=== PATIENT | male | born 1965 | race Caucasian/White ===

== ENCOUNTER 2016-11-08 10:57 | Day surgery (SDC) | payer MEDICAID ==
--- NOTE | 2016-10-26 12:47 | P.GSHP ---
History of Present Illness H&P Date: 10/26/16 Chief Complaint: Right inguinal hernia Patient was seen in the office for evaluation of a right angle hernia. The patient is a history of a previous open left inguinal hernia repair. The patient had increased pain and an enlarging bulge over the last several months. Pain does radiate to the back somewhat. Denies nausea or vomiting. No change in bowel habits. Medications and Allergies Home Medications Medication Instructions Recorded Confirmed Type Ibuprofen [Advil] 200 - 400 mg PO Q4-6H PRN 01/16/15 01/16/15 History Zipp Fizz 1 dose PO DAILY 01/16/15 01/16/15 History Allergies Allergy/AdvReac Type Severity Reaction Status Date / Time No Known Allergies Allergy Verified 01/16/15 09:06 Surgical - Exam Physical exam: General: Well-developed, well-nourished HEENT: Normocephalic, sclerae nonicteric Abdomen: Nontender, nondistended, reducible right inguinal hernia noted, both testes normal, no palpable abdominal hernia, previous scar noted Extremities: No edema Neuro: Alert and oriented Assessment and Plan (1) Right inguinal hernia Narrative/Plan: Will proceed with operative repair. Patient I discussed the options of approach. We decided to proceed with a da Fan assisted laparoscopic radical herniorrhaphy. The risks of bleeding, infection, bowel and bladder injury, recurrence, and conversion to an open procedure were discussed. He understands and wishes to proceed. Status: Acute
[2016-11-04 11:01] VITALS: BMI 24.4
[~2016-11-08 10:57] MED LIST: DEXAMETHASONE SOD PHOSPHATE 10 MG/ML 1 ML VIAL IV ONE; HEPARIN SODIUM,PORCINE 5,000 UNIT/ML 1 ML VIAL SQ ONE; LACTATED RINGERS 1,000 ML IV SCH; MIDAZOLAM 2 MG/2 ML VIAL IV PRN; ONDANSETRON 4 MG/2 ML VIAL IVP ONE; SCOPOLAMINE 1.5MG/72HR PATCH TRANSDERM ONE; ceFAZolin 2 GM in SODIUM CHLORIDE 0.9% 100 ML IVPB ONE
[2016-11-08 13:53] VITALS: TEMP 97.6
[2016-11-08] MEDS ORDERED: LIDOCAINE 1% 20 ML VIAL (10MG/ML) FOR IV START INTRADERMA ONE (14:00)
[2016-11-08 14:14] LABS: Glucose,Whole Blood 93 mg/dL (75-99)
[2016-11-08] MEDS ORDERED: FAMOTIDINE 20 MG/2 ML VIAL IV ONE (14:17)
[2016-11-08] MEDS ORDERED: LIDOCAINE 1% INJ 10MG/ML (20 ML MDV) ONE (14:56)
[2016-11-08] MEDS ORDERED: PROPOFOL 10 MG/ML 20 ML VIAL IV ONE (14:56)
[2016-11-08] MEDS ORDERED: NEOSTIGMINE 1 MG/ML 10 ML VIAL ONE (14:56)
[2016-11-08] MEDS ORDERED: SUCCINYLCHOLINE CHLORIDE 100 MG/5 ML SYR IV ONE (14:56)
[2016-11-08] MEDS ORDERED: HYDROmorphone (PF) 1 MG/ML ONE (14:56)
[2016-11-08] MEDS ORDERED: GLYCOPYRROLATE 0.2 MG/ML 2 ML VIAL ONE (14:56)
[2016-11-08] MEDS ORDERED: MIDAZOLAM 2 MG/2 ML VIAL ONE (14:56)
[2016-11-08] MEDS ORDERED: fentaNYL (PF) 50 MCG/ML 2 ML AMP ONE (14:56)
[2016-11-08] MEDS ORDERED: ROCURONIUM BROMIDE 10 MG/ML 10 ML VIAL IV ONE (14:56)
[2016-11-08] MEDS ORDERED: BUPIVACAIN-EPI 0.25%-1:200,000 30 ML VIAL SQ ONE ×2 (15:23)
[2016-11-08] MEDS: HYDROmorphone 1 MG/ML 1 ML SYRINGE IVP PRN ×3 (17:48→18:01)
[2016-11-08] MEDS ORDERED: KETOROLAC 30 MG/ML 1 ML VIAL IVP ONE (17:48)
[2016-11-08] MEDS ORDERED: HYDROcodone/APAP 5-325MG 1 EACH TAB PO PRN (18:00)
[2016-11-08] MEDS ORDERED: NALOXONE 0.4 MG/ML 1 ML VIAL IV PRN (18:00)
--- NOTE | 2016-11-08 18:03 | P.PCN ---
Date of Procedure: 11/08/16 Preoperative Diagnosis: Postoperative Diagnosis: Procedure(s) Performed: PREOPERATIVE DIAGNOSIS: Right inguinal hernia POSTOPERATIVE DIAGNOSIS: Same PROCEDURE: Laparoscopic repair right inguinal hernia with the da Fan robot assistance SURGEON: Caterina EBL: Minimal ANESTHESIA: General COMPLICATIONS: None OPERATIVE PROCEDURE: Patient was placed in the operating table in the supine position. The patient was then placed in lithotomy. The abdomen was prepped and draped in usual sterile fashion. A small curvilinear supraumbilical incision was made. The fascia was retracted anteriorly with Germán forceps. The Veress needle was inserted. The saline drop test was normal. Insufflation took place to 15 mmHg. A 5 mm trocar was then inserted. 2 additional 8 mm trochars were placed in the right upper quadrant and left upper quadrant under visualization. The initial 5 was switched to a 12 mm trocar at that time under direct visualization. The robotic arms were then brought in and docked into place. The fenestrated bipolar was used in the left arm and the laparoscopic liat was utilized in the right arm. A 30 12 mm scope was used in the up position. The peritoneal cavity was inspected. The patient had a indirect inguinal hernia on the right side. The left side appeared normal without defect. Following that careful dissection of the preperitoneal space took place. This took place using both electrocautery and sharp dissection and primarily blunt dissection. Visualization of the pubic tubercle and Baldemar's ligament took place medially. Full dissection took place laterally as well. The patient's hernia was quite large with some degree of chronic inflammatory change. The hernia sac was fully dissected. Dissection took place down onto the iliacs. Once we had adequate space the 15 x 10 progrip mesh was advanced into the preperitoneal space and flattened out appropriately to cover all potential hernia sites. No sutures were used. The peritoneal defect was then closed using a locking 2-0 VLok suture. The patient had 2-3 small defects in the peritoneum. Thankfully we had a large amount of hernia sac to help with coverage and the hernia sac was used to cover the small defects using 2 separate short running 3-0 Vicryl sutures. The pneumoperitoneum was then evacuated. The fascia at the 12 mm site was closed using an 0 Vicryl stitch. The skin of all 3 sites was closed using a 4-0 Monocryl stitch. Dermabond was then applied. DISPOSITION: Stable to recovery room Implants: Indications for Procedure: Operative Findings: Description of Procedure:
[2016-11-08 18:23] VITALS: RESP 18
[2016-11-08] MEDS ORDERED: ONDANSETRON 4 MG/2 ML VIAL IVP ONE (19:12)
[2016-11-08 19:14] VITALS: BP 145/87; PULSE 89
[2016-11-09] MEDS ORDERED: KETOROLAC 30 MG/ML 1 ML VIAL IVP SCH
== END 2016-11-08 19:42 | disposition home or self-care (01) ==
LOC: OR 10:57
PROVIDERS: ATTEND Surgery
DX: K40.90 Unilateral inguinal hernia, without obstruction or gangrene, not specified as recurrent (principal); K21.9 Gastro-esophageal reflux disease without esophagitis
CPT/HCPCS: 49650; C1781; J2250; J1644; J1100; J2710; J0690; J2405; J2001; J3010; J1885; J1170; J0330; J2704

== ENCOUNTER 2017-05-02 11:35 | Day surgery (SDC) | payer MEDICAID ==
[2017-04-27 14:24] VITALS: BMI 25.0
[~2017-05-02 11:35] MED LIST changes: -HEPARIN SODIUM,PORCINE 5,000 UNIT/ML 1 ML VIAL SQ ONE; +HYDROmorphone 0.5 MG/0.5 ML SYRINGE IVP PRN; -LACTATED RINGERS 1,000 ML IV SCH; +LIDOCAINE 1% 20 ML VIAL (10MG/ML) FOR IV START INTRADERMA PRN; -ceFAZolin 2 GM in SODIUM CHLORIDE 0.9% 100 ML IVPB ONE; +ceFAZolin IN SWFI 2 GM/20 ML SYRINGE IVP ONE
[2017-05-02] MEDS: LACTATED RINGERS 1,000 ML IV SCH ×2 (12:42→15:07)
[2017-05-02 12:45] VITALS: TEMP 98.3
[2017-05-02] MEDS ORDERED: fentaNYL (PF) 50 MCG/ML 2 ML AMP IV ONE (12:54)
[2017-05-02] MEDS ORDERED: LIDOCAINE 1% INJ 10MG/ML (20 ML MDV) ONE (13:15)
[2017-05-02] MEDS ORDERED: MEPERIDINE 50 MG/ML SYRINGE ONE (13:15)
[2017-05-02] MEDS ORDERED: MIDAZOLAM 2 MG/2 ML VIAL ONE (13:15)
[2017-05-02] MEDS ORDERED: fentaNYL (PF) 50 MCG/ML 2 ML AMP ONE (13:15)
[2017-05-02] MEDS ORDERED: PROPOFOL 10 MG/ML 20 ML VIAL IV ONE (13:15)
[2017-05-02] MEDS ORDERED: KETAMINE 10 MG/ML 20 ML VIAL ONE (13:15)
[2017-05-02] MEDS ORDERED: MORPHINE SULFATE 10 MG/ML SYRINGE ONE (13:15)
[2017-05-02] MEDS ORDERED: ceFAZolin 1,000 MG in SODIUM CHLORIDE 0.9% 1,000 ML IRRIGATION ONE (13:43)
[2017-05-02 14:12] VITALS: RESP 16
[2017-05-02] MEDS ORDERED: SCOPOLAMINE 1.5MG/72HR PATCH TRANSDERM ONE (14:23)
--- NOTE | 2017-05-02 14:32 | P.ONQ ---
Anesthesiology Proc Note - PNB - Peripheral Nerve Block Performed Left Axillary Single Time Out Performed: Yes Procedure Start Time: 13:00 Indication: Acute Post-Operative Pain, Analgesia Sedation Type: Sedate with meaningful contact maintained Preparation: Sterile Prep Position: Supine Catheter: None Needle Types: Other (see comment) (Salvador) Needle Size: 50mm (2") Needle Gauge: 21 Technique: Ultrasound Injectate: Other (see comment) (12.5 mL 2% lidocaine +12.5 mL 0.5% bupivacaine) Adjunct: Epinephrine (see comment for dilution ratio) (1:200,000) Narrative: The block was difficult to do since there were quite a number of ancillary veins in the area of the axillary artery and it was difficult to reach the area of the ulnar nerve and the radial nerve while trying to avoid these vessels. Blood Aspirated: No Pain Paresthesia on Injection Noted: No Resistance on Injection: Normal Events: Uneventful and Well Tolerated
[2017-05-02] MEDS ORDERED: HYDROcodone/APAP 10-325MG 1 EACH TAB PO ONE (14:45)
[2017-05-02 15:40] VITALS: BP 119/85; PULSE 67
--- NOTE | 2017-06-30 08:41 | OP ---
OPERATIVE REPORT SURGERY DATE: 05/02/2017. PREOPERATIVE DIAGNOSIS: Advanced basal joint arthritis left thumb. FINAL DIAGNOSIS: Advanced basal joint arthritis left thumb. PROCEDURE PERFORMED: Excision of trapezium with ligament reconstruction tendon interposition arthroplasty using the flexor carpi radialis tendon. DESCRIPTION OF PROCEDURE: The patient was taken to the Operative Suite after an axillary block was performed by the Department of Anesthesia in the holding area with good results. The involved arm was prepped and draped in the usual manner, elevated, exsanguinated and blood pressure tourniquet inflated to 250 mm of mercury. A volar incision was made over the palm of the hand using a Cedeno approach. The dissection was taken through the subcutaneous tissue bluntly to identify and to preserve sensory branches. The flexor carpi radialis tendon was initially identified and kept in view throughout the remainder of the procedure. The thenar muscles were then gently dissected off of the volar capsule and reflected ulnarly and distally. Longitudinal arthrotomy was then made into the trapezial metacarpal and scaphotrapezial joints. The trapezium was dissected sharply with a little traction on the thumb and care again, given to monitoring the position of the flexor carpi radialis. The trapezium was osteotomized and removed in piecemeal fashion using rongeur. Again, the flexor carpi radialis tendon was kept intact so as not to be harmed during this portion of the procedure. A drill hole was then made into the base of the first metacarpal, beginning with an awl and enlarged using drill bits and a large curette. A similar hole was drilled on the dorsal aspect of the base of the first metacarpal perpendicular to the plane of the nail bed. Attention was then turned to harvesting the flexor carpi radialis. Approximately 8 to 10 cm proximal to the wrist, small transverse incision was made and blunt dissection was taken through the subcutaneous tissue. The flexor carpi radialis tendon was identified and released to this level. It was retracted into the wrist wound with a gentle tug. A suspension sling arthroplasty was then performed along with ligament reconstruction of the deep volar ligament using the flexor carpi radialis tendon. The edge of the tendon was secured with suture. The suture was then passed into the base of the first metacarpal and brought out through the dorsal drill hole and brought back down upon itself and abductor pollicis longus tendons. It was secured in place with 3-0 PDS suture. It was then brought back around itself, back through the abductor pollicis longus tendons, and back down upon itself again and further secured with 3-0 PDS suture. Again, in this manner reconstruction of the deep volar ligament was accomplished as well as a suspension sling arthroplasty and natural tendon spacer for the joint. Next, a longitudinal incision was made along the ring finger ray distal to the wrist crease. Dissection was taken through the skin and subcutaneous tissue, initially sharp through the skin and then blunt through the subcutaneous tissue to ensure protection of any potential terminal transverse branches of the palmar cutaneous nerve. The palmar fascia was then incised under direct vision longitudinally exposing the transverse carpal ligament. The transverse carpal ligament also was incised under direct visualization. The median nerve was then reflected free of tenosynovium to ensure no adhesions. At this point, a slight hour glass constriction was noted of the median nerve beneath the transverse carpal ligament. Both wounds were again irrigated and were closed with running and interrupted 5-0 nylon suture. A soft bulky dressing was then applied including the volar plaster splint, immobilizing the wrist in neutral position and a thumb spica splint to the IP joint, immobilizing the thumb. The patient was then taken to the Recovery Room in satisfactory condition. MMODL / IJN: [id number] /
== END 2017-05-02 15:48 | disposition home or self-care (01) ==
LOC: OR 11:35
PROVIDERS: ATTEND Orthopaedic Surgery Hand Surgery
DX: M18.9 Osteoarthritis of first carpometacarpal joint, unspecified (principal); M19.032 Primary osteoarthritis, left wrist; K21.9 Gastro-esophageal reflux disease without esophagitis; K90.0 Celiac disease; Z91.018 Allergy to other foods; Z79.1 Long term (current) use of non-steroidal anti-inflammatories (NSAID)
CPT/HCPCS: 25447; 26480; J2250; J1100; J2175; J2270; J0690 ×2; J2405; J2001; J3010; J2704

== ENCOUNTER → 2019-03-24 | Outpatient (CLI) | payer MEDICAID ==
[2019-03-24 08:47] LABS: Basophils # (A) 0.1 k/uL (0-0.2); Basophils % (A) 2 %; Eosinophils # (A) 0.2 k/uL (0-0.7); Eosinophils % (A) 4 %; HGB 16.1 gm/dL (13.0-17.5); Lymphocytes # (A) 1.2 k/uL (1.0-4.8); Lymphocytes % (A) 25 %; MCH 31.5 pg (25.0-35.0); MCHC 34.2 g/dL (31.0-37.0); MCV 92.3 fL (80.0-100.0); Mean Platelet Volume 5.5; Monocytes # (A) 0.4 k/uL (0-1.0); Monocytes % (A) 8 %; Neutrophils # (A) 2.7 k/uL (1.3-7.7); Neutrophils % (A) 59 %; Platelet Count 287 k/uL (150-450); RDW 12.5 % (11.5-15.5); WBC 4.6 k/uL (3.8-10.6)
--- NOTE | 2019-03-24 16:35 | XR ---
EXAMINATION TYPE: XR Hip Complete LT DATE OF EXAM: 03/24/2019 COMPARISON: None HISTORY: Eun osteoarthritis hip pain TECHNIQUE: 2 view left hip FINDINGS: There is loss of joint space. Acetabular and femoral head sclerosis is present. Some femora l head spurring is noted. Findings are compatible with early advanced osteoarthritic degenerative walter nge. No acute fractures are evident. IMPRESSION: 1. Moderate to advanced osteoarthritic degenerative change left hip.
[2019-03-24 18:13] LABS: African American GFR (CKD) 98.5 (60.0-200.0); Albumin 4.7 g/dL (3.80-4.90); Albumin/Globulin Ratio 2.14 (1.60-3.17); Chol/HDL Ratio 3.23; Globulin 2.2 g/dL (1.6-3.3); Potassium 5.7 mmol/L (3.5-5.5); Total Bilirubin 1.1 mg/dL (0.3-1.2); Total Protein 6.9 g/dL (6.2-8.2)
[2019-03-24 20:27] LABS: Hemoglobin A1C 5.6 % (4.0-6.0)
== END | disposition home or self-care (01) ==
LOC: LABWHC1 08:15
PROVIDERS: ATTEND Internal Medicine Geriatric Medicine
DX: M16.12 Unilateral primary osteoarthritis, left hip (principal); K90.0 Celiac disease; E78.5 Hyperlipidemia, unspecified; R73.9 Hyperglycemia, unspecified; N40.0 Benign prostatic hyperplasia without lower urinary tract symptoms; Z00.00 Encounter for general adult medical examination without abnormal findings
CPT/HCPCS: 36415; 73502; 80053; 80061; 83036; 84153; 84443; 85025

== ENCOUNTER 2019-06-20 07:16 | Day surgery (SDC) | payer MEDICAID ==
[2019-06-18 14:14] VITALS: BMI 25.7
[~2019-06-20 07:16] MED LIST changes: -DEXAMETHASONE SOD PHOSPHATE 10 MG/ML 1 ML VIAL IV ONE; -HYDROmorphone 0.5 MG/0.5 ML SYRINGE IVP PRN; +LACTATED RINGERS 1,000 ML IV SCH; -MIDAZOLAM 2 MG/2 ML VIAL IV PRN; -ONDANSETRON 4 MG/2 ML VIAL IVP ONE; -SCOPOLAMINE 1.5MG/72HR PATCH TRANSDERM ONE; -ceFAZolin IN SWFI 2 GM/20 ML SYRINGE IVP ONE
[2019-06-20 07:34] VITALS: TEMP 98.6
[2019-06-20] MEDS ORDERED: ONDANSETRON 4 MG/2 ML VIAL IVP ONE (07:39)
[2019-06-20] MEDS ORDERED: LIDOCAINE 1% INJ 10MG/ML (20 ML MDV) ONE (07:49)
[2019-06-20] MEDS ORDERED: fentaNYL (PF) 50 MCG/ML 2 ML AMP ONE (07:49)
[2019-06-20] MEDS ORDERED: MIDAZOLAM 2 MG/2 ML VIAL ONE (07:49)
[2019-06-20] MEDS ORDERED: PROPOFOL 10 MG/ML 20 ML VIAL IV ONE (07:49)
--- NOTE | 2019-06-20 08:10 | P.GSHP ---
History of Present Illness H&P Date: 06/20/19 Chief Complaint: GERD, screening Patient here today for upper and lower endoscopy. Patient has complaints of bad reflux and upper abdominal discomfort for the last 5 months. History of celiac disease in the past although that seems to have resolved. He has a history of colon polyps when he was a child but none since. No bowel related complaints. Past Medical History Past Medical History: Asthma, GERD/Reflux, Osteoarthritis (OA) Additional Past Medical History / Comment(s): exercise induced asthma. hx celiac disease History of Any Multi-Drug Resistant Organisms: None Reported Past Surgical History: Hernia Repair, Orthopedic Surgery Additional Past Surgical History / Comment(s): COLON POLYP,ORIF RIGHT HAND,LEFT INGUINAL HERNIA, VASECTOMY,COLONOSCOPY,RIGHT KNEE ARTHROSCOPIC , RIGHT ROTATOR CUFF X3, LEFT KNEE ARTHROSCOPIC,Rt inguinal hernia repair Past Anesthesia/Blood Transfusion Reactions: Motion Sickness, Postoperative Nausea & Vomiting (PONV) Additional Past Anesthesia/Blood Transfusion Reaction / Comment(s): no hx blood transfusion Smoking Status: Former smoker - Past Family History Mother Family Medical History: Cancer Medications and Allergies Home Medications Medication Instructions Recorded Confirmed Type Albuterol Inhaler [Ventolin Hfa 1 - 2 puff INHALATION RT-Q6H PRN 06/18/19 06/20/19 History Inhaler] Ibuprofen [Advil] 200 mg PO DAILY PRN 06/18/19 06/20/19 History Omeprazole Magnesium [PriLOSEC OTC] 20 mg PO DAILY 06/18/19 06/20/19 History Allergies Allergy/AdvReac Type Severity Reaction Status Date / Time No Known Allergies Allergy Verified 06/20/19 07:26 Surgical - Exam Vital Signs Temp Pulse Resp BP Pulse Ox 98.6 F 83 15 162/104 95 06/20/19 07:30 06/20/19 07:30 06/20/19 07:30 06/20/19 07:30 06/20/19 07:30 Physical exam: General: Well-developed, well-nourished HEENT: Normocephalic, sclerae nonicteric Abdomen: Nontender, nondistended Extremities: No edema Neuro: Alert and oriented Assessment and Plan (1) GERD (gastroesophageal reflux disease) Narrative/Plan: Will proceed with upper and lower endoscopy at this time. Current Visit: Yes Status: Acute Code(s): K21.9 - GASTRO-ESOPHAGEAL REFLUX DISEASE WITHOUT ESOPHAGITIS SNOMED Code(s): 017084775
--- NOTE | 2019-06-20 08:19 | P.PCN ---
Date of Procedure: 06/20/19 Procedure(s) Performed: PREOPERATIVE DIAGNOSIS: GERD, screening POSTOPERATIVE DIAGNOSIS: Gastritis, tiny sliding hiatal hernia, diverticulosis PROCEDURE: 1. EGD with biopsy 2. Colonoscopy ANESTHESIA: MAC SURGEON: Zack Diggs M.D. SPECIMENS: Duodenum, antrum ENDOSCOPIC PROCEDURE: The patient was on the endoscopy table in the left decubitus position. The Olympus gastroscope was inserted into the oropharynx and passed under direct visualization to the region of the third portion of the duodenum. From that point the scope was slowly withdrawn inspecting all surfaces carefully. There were no neoplastic inflammatory or polypoid lesions throughout the duodenum. A biopsy of the duodenum took place. The pylorus was widely patent. The stomach was carefully inspected. There was gastritis present. A biopsy of the antrum took place to rule out H. pylori. Retroflexion revealed a very small sliding hiatal hernia. The esophagus was then carefully examined. There were no neoplastic inflammatory or polypoid lesions throughout the visualized esophagus. The patient was kept on the endoscopy table in the left decubitus position. The Olympus colonoscope was inserted into the anus and passed under direct visualization to the base of the cecum. The appendiceal orifice was visualized. From that point the scope was slowly withdrawn inspecting all surfaces carefully. There were no neoplastic inflammatory or polypoid lesions throughout the cecum, ascending, transverse, descending, sigmoid and rectum. There was mild left-sided diverticulosis noted. Digital rectal examination was normal. The patient was taken to the recovery room in stable condition per anesthesia guidelines. RECOMMENDATIONS: Increase fiber. Follow-up colonoscopy in 10 years. Continue antiacids but gradually decrease frequency of use.
[2019-06-20 08:25] VITALS: RESP 16
[2019-06-20 08:46] VITALS: BP 142/95; PULSE 65
== END 2019-06-20 08:58 | disposition home or self-care (01) ==
LOC: ORWHC2ENDO 07:16
PROVIDERS: ATTEND Surgery
DX: K29.50 Unspecified chronic gastritis without bleeding (principal); Z12.11 Encounter for screening for malignant neoplasm of colon; K21.9 Gastro-esophageal reflux disease without esophagitis; K44.9 Diaphragmatic hernia without obstruction or gangrene; K57.30 Diverticulosis of large intestine without perforation or abscess without bleeding; Z86.010 Personal history of colon polyps; I10 Essential (primary) hypertension; J45.990 Exercise induced bronchospasm; M19.90 Unspecified osteoarthritis, unspecified site; Z79.899 Other long term (current) drug therapy; Z87.19 Personal history of other diseases of the digestive system; Z98.890 Other specified postprocedural states; Z87.891 Personal history of nicotine dependence; Z80.9 Family history of malignant neoplasm, unspecified; Z98.52 Vasectomy status
CPT/HCPCS: 88305; 43239; J2250; J2405; J2001; J3010; J2704; G0121; 45378

== ENCOUNTER → 2019-07-03 | Outpatient (CLI) | payer MEDICAID ==
[2019-07-03 18:42] LABS: African American GFR (CKD) 117.4 (60.0-200.0); Albumin 4.8 g/dL (3.80-4.90); Albumin/Globulin Ratio 2.4 (1.60-3.17); Anion Gap 5.4 mmol/L (4.00-12.00); Carbon Dioxide 30.6 mmol/L (21.6-31.8); Magnesium 2.5 mg/dL (1.5-2.4); Non-African American GFR(CKD) 101.3 (60.0-200.0); Potassium 5.3 mmol/L (3.5-5.5); Total Bilirubin 0.5 mg/dL (0.3-1.2); Total Protein 6.8 g/dL (6.2-8.2)
== END | disposition home or self-care (01) ==
LOC: LABWHC1 14:26
PROVIDERS: ATTEND Internal Medicine Geriatric Medicine
DX: E87.5 Hyperkalemia (principal)
CPT/HCPCS: 36415; 80053; 83735

== ENCOUNTER 2019-07-12 06:00 | Day surgery (SDC) | payer MEDICAID ==
[2019-07-10 13:48] VITALS: BMI 25.7
[~2019-07-12 06:00] MED LIST changes: +DEXAMETHASONE SOD PHOSPHATE 10 MG/ML 1 ML VIAL IV ONE; +HYDROmorphone 0.5 MG/0.5 ML SYRINGE IVP PRN; +LIDOCAINE 1% (10MG/ML) FOR IV START INTRADERMA PRN; -LIDOCAINE 1% 20 ML VIAL (10MG/ML) FOR IV START INTRADERMA PRN; +MIDAZOLAM 2 MG/2 ML VIAL IV PRN; +ONDANSETRON 4 MG/2 ML VIAL IVP ONE; +fentaNYL (PF) 50 MCG/ML 2 ML AMP IV PRN
[2019-07-12] MEDS ORDERED: SCOPOLAMINE 1.5MG/72HR PATCH TRANSDERM ONE (06:55)
[2019-07-12] MEDS ORDERED: LIDOCAINE 1% INJ 10MG/ML (20 ML MDV) ONE (07:30)
[2019-07-12] MEDS ORDERED: fentaNYL (PF) 50 MCG/ML 2 ML AMP ONE (07:30)
[2019-07-12] MEDS ORDERED: MIDAZOLAM 2 MG/2 ML VIAL ONE (07:30)
[2019-07-12] MEDS ORDERED: ROPIVACAINE 5 MG/ML 30 ML VIAL ONE (07:30)
[2019-07-12] MEDS ORDERED: PROPOFOL 10 MG/ML 20 ML VIAL IV ONE (07:30)
[2019-07-12] MEDS ORDERED: LACTATED RINGERS 1,000 ML IV ONE (08:28)
[2019-07-12 08:37] VITALS: TEMP 96.8
--- NOTE | 2019-07-12 08:39 | P.OP ---
Date of Procedure: 07/12/19 Preoperative Diagnosis: Right second MTP arthritis Postoperative Diagnosis: Same Procedure(s) Performed: Right second MTP implant arthroplasty with Cartiva Implants: 8-mm Cartiva implant Anesthesia: RUFUSA Surgeon: Vikram Benitez [employer] Tender #1: Sue Mckeon Estimated Blood Loss (ml): 5 IV fluids (ml): 700 Pathology: none sent Condition: stable Disposition: PACU Indications for Procedure: The patient is a very pleasant and active 53-year-old male with a long history of second MTP arthritis that has failed to respond to nonsurgical treatment. He presented to my office discussed different surgical options. We discussed the difficulty in managing this problem surgically. We discussed different type of interpositional arthroplasty used in the past. We also discussed encouraging outcomes with Cartiva for first MTP arthritis. We discussed using a smaller implant may alleviate his pain while allowing motion at the second MTP joint. The patient agreed to this. We discussed potential risks and complications of surgery including but not limited to risk of anesthesia, infection, damage to local blood vessels or nerves, subsidence of the implant, stiffness, intraoperative fracture, postoperative fracture, continued or worsened pain, and inability to regain preinjury level of function, DVT, PE, medical complications, and generalized to satisfaction with the surgical outcome, possible loss of life or limb. The patient voiced his understanding of these potential Occasions and also technologist at other less common complications are possible. He provided his verbal and written consent to go forward with surgery. Description of Procedure: The patient identified in preoperative holding and the correct right foot and second MTP joint were marked with skin marker. I reviewed the consent form with the patient and his family. All their questions were answered. The patient was then brought back to the operating room by anesthesia. He was positioned on the OR table where general anesthetic and preoperative antibiotics were given. A tourniquet was applied the proximal aspect of the right leg. The right leg was then prepped and draped in the standard sterile fashion. Prior to starting surgery timeout was performed identifying the correct patient, operative extremity, and procedure. The patient's leg was then elevated, exsanguinated with an Esmarch bandage, and the tourniquet was inflated to 250 mmHg. I began by outlining a longitudinal incision directly over the second MTP joint. Skin incision was made with a scalpel. Dissection was carried down carefully to the subcu cutaneous tissue with tenotomy scissors. Crossing veins were controlled with electrocautery. The long extensor tendon was identified and carefully retracted medially. A longitudinal capsulotomy was performed. On inspection of the joint there was a large dorsal osteophyte off the distal first metatarsal which was contoured with a Yaya. On inspection of the metatarsal head there is full thickness cartilage loss with only a small rim of peripheral cartilage. A 6 mm an 8 mm sizer were used and the 8 mm sizer appeared appropriate to the patient's anatomy. A K wire was driven down the central aspect of the metatarsal. A reamer was used to create a socket for the 8 mm implant. The wound was thoroughly irrigated and an 8 mm implant was press-fit into the socket. It appeared stable. The wound was then thoroughly irrigated and closed in layers. A sterile dressing was applied. The patient was awoken from his anesthetic, transferred to a [place], and brought to recovery entire procedure well. Plan: The patient is going to be discharged home as an outpatient. He was given a nerve block by anesthesia and early postoperative weightbearing restrictions will be under the guidance of anesthesia due to the effects of the regional anesthetic. From my point he can weight-bear as tolerated when he is cleared by anesthesia and a tall boot. He is to leave the surgical dressing on for 2 days. He'll follow-up in the office in 2 weeks for a wound check. He does not need x-rays at that time.
[2019-07-12] MEDS ORDERED: PROMETHAZINE INJ 25 MG/ML 1 ML VIAL IVPB ONE (08:51)
[2019-07-12] MEDS ORDERED: ONDANSETRON 4 MG/2 ML VIAL IVP ONE (09:01)
[2019-07-12] MEDS ORDERED: diphenhydrAMINE 50 MG/ML 1 ML VIAL IVP ONE (09:15)
[2019-07-12 09:57] VITALS: BP 155/85; PULSE 57; RESP 18
--- NOTE | 2019-07-12 10:09 | P.ANPRN ---
Procedure Note - Anesthesia - Nerve Block Performed Right Single Date of Procedure: 07/12/19 Procedure Start Time: 07:05 Procedure Stop Time: 07:15 Location of Patient: PreOp Indication: Acute Post-Operative Pain, Requested by Surgeon Specifically requested for management of pain by DrMacy: Vikram Benitez Sedation Type: Sedate with meaningful contact maintained Preparation: Sterile Prep Position: Supine Catheter: None Needle Types: Other (see comment) Needle Gauge: Other (see comment) (25 G 1.5 inch needle.15 ml of ropivacaine 0.5 %) Ultrasound used to visualize needle placement: No Ultrasound used to observe medication spread: No Blood Aspirated: No Pain Paresthesia on Injection Noted: No Resistance on Injection: Normal Image Stored and Saved: No Events: Uneventful and Well Tolerated
== END 2019-07-12 10:57 | disposition home or self-care (01) ==
LOC: OR 06:00
PROVIDERS: ATTEND Orthopaedic Surgery
DX: M19.071 Primary osteoarthritis, right ankle and foot (principal); I10 Essential (primary) hypertension; M20.11 Hallux valgus (acquired), right foot; J45.909 Unspecified asthma, uncomplicated; K21.9 Gastro-esophageal reflux disease without esophagitis; Z79.1 Long term (current) use of non-steroidal anti-inflammatories (NSAID); Z79.899 Other long term (current) drug therapy; Z97.3 Presence of spectacles and contact lenses; Z87.19 Personal history of other diseases of the digestive system; Z98.890 Other specified postprocedural states; Z98.52 Vasectomy status; Z87.891 Personal history of nicotine dependence; Z82.49 Family history of ischemic heart disease and other diseases of the circulatory system; Z91.89 Other specified personal risk factors, not elsewhere classified
CPT/HCPCS: 28899; 64450; C1713; J2250; J1200; J1100; J2550; J2405; J2001; J3010; J2795; J2704

== ENCOUNTER → 2020-06-17 | Outpatient (CLI) | payer MEDICAID ==
[2020-06-17 17:13] LABS: HCT 45.2 % (39.0-53.0); MCH 29.9 pg (25.0-35.0); MCHC 33.2 g/dL (31.0-37.0); Mean Platelet Volume 6.9; Platelet Count 313 k/uL (150-450); RBC 5.02 m/uL (4.30-5.90); WBC 7.9 k/uL (3.8-10.6)
[2020-06-17 17:23] LABS: ALT 22 U/L (4-49); AST 24 U/L (17-59); African American GFR (CKD) >90 (>60 ml/min/1.73 sqM); Albumin 4.6 g/dL (3.5-5.0); Alkaline Phosphatase 62 U/L (38-126); Anion Gap 6 mmol/L; Blood Urea Nitrogen 23 mg/dL (9-20); Calcium 9.9 mg/dL (8.4-10.2); Carbon Dioxide 27 mmol/L (22-30); Chloride 104 mmol/L (98-107); Glucose 90 mg/dL (74-99); Non-African American GFR(CKD) >90 (>60 ml/min/1.73 sqM); Potassium 4.4 mmol/L (3.5-5.1); Sodium 137 mmol/L (137-145); Total Bilirubin 0.5 mg/dL (0.2-1.3); Total Protein 7.4 g/dL (6.3-8.2)
[2020-06-17 17:24] LABS: INR 0.9 (<1.2); Partial Thromboplastin Time 23.4 sec (22.0-30.0); Prothrombin Time 9.9 sec (9.0-12.0)
[2020-06-17 17:26] LABS: Appearance,Urine Clear (Clear); Bilirubin,Urine Negative (Negative); Blood,Urine Negative (Negative); Color,Urine Yellow; Glucose,Urine (UA) Negative (Negative); Ketones,Urine Negative (Negative); Leukocyte Esterase,Urine Negative (Negative); Nitrite,Urine Negative (Negative); PH, Urine 5.5 (5.0-8.0); Protein,Urine Negative (Negative); Specific Gravity,Urine 1.028 (1.001-1.035); Urobilinogen,Urine <2.0 mg/dL (<2.0)
== END | disposition home or self-care (01) ==
LOC: LABPAT 16:10
PROVIDERS: ATTEND Orthopaedic Surgery
DX: Z01.818 Encounter for other preprocedural examination (principal); Z01.812 Encounter for preprocedural laboratory examination
CPT/HCPCS: 80053; 81003; 85027; 85610; 85730; 87070

== ENCOUNTER 2020-06-24 05:32 | Day surgery (SDC) | payer MEDICAID ==
[2020-06-18 15:16] VITALS: BMI 25.7
[~2020-06-24 05:32] MED LIST changes: +ACETAMINOPHEN TAB 500 MG TAB PO PRN; -DEXAMETHASONE SOD PHOSPHATE 10 MG/ML 1 ML VIAL IV ONE; +GABAPENTIN 300 MG CAP PO PRN; -HYDROmorphone 0.5 MG/0.5 ML SYRINGE IVP PRN; +MELOXICAM 7.5 MG TAB PO PRN; -ONDANSETRON 4 MG/2 ML VIAL IVP ONE; +ROPIVACAINE 246.25 MG, EPINEPHrine 0.5 MG, KETOROLAC 30 MG, cloNIDine HCL/PF 80 MCG, WA... MISCELLANE PRN; +TRANEXAMIC ACID 1,000 MG in SODIUM CHLORIDE 0.9% 100 ML IVPB PRN; -fentaNYL (PF) 50 MCG/ML 2 ML AMP IV PRN
[2020-06-24] MEDS ORDERED: ONDANSETRON 4 MG/2 ML VIAL IVP ONE ×2 (06:07→09:58)
[2020-06-24] MEDS ORDERED: SCOPOLAMINE 1.5MG/72HR PATCH TRANSDERM ONE (06:08)
[2020-06-24] MEDS ORDERED: DEXAMETHASONE SOD PHOSPHATE 4 MG/ML 1 ML VIAL IVP ONE (06:08)
[2020-06-24] MEDS ORDERED: MIDAZOLAM 2 MG/2 ML VIAL ONE (06:58)
[2020-06-24] MEDS ORDERED: fentaNYL (PF) 50 MCG/ML 2 ML AMP ONE (06:58)
[2020-06-24] MEDS ORDERED: TRANEXAMIC ACID 1,000 MG/10 ML VIAL ONE (06:58)
[2020-06-24] MEDS ORDERED: ePHEDrine SULFATE/0.9% NACL/PF 50 MG/5 ML SYRINGE IV ONE (06:58)
[2020-06-24] MEDS ORDERED: PROPOFOL 10 MG/ML 20 ML VIAL IV ONE (06:58)
[2020-06-24] MEDS ORDERED: LIDOCAINE 1% INJ 10MG/ML (20 ML MDV) ONE (06:58)
[2020-06-24] MEDS ORDERED: SUCCINYLCHOLINE CHLORIDE VIAL 200 MG/10 ML VIAL IV ONE (06:58)
[2020-06-24] MEDS ORDERED: SODIUM CHLORIDE 0.9% IRRIG 1,000 ML BTL IRRIGATION ONE ×2 (06:58→08:49)
[2020-06-24] MEDS ORDERED: SODIUM CHLORIDE 0.9% 100 ML BAG ONE (06:58)
[2020-06-24] MEDS ORDERED: HEPARIN SODIUM,PORCINE 10,000 UNIT/ML 1 ML VIAL ONE ×2 (06:58→08:49)
[2020-06-24] MEDS ORDERED: HYDROmorphone 1 MG/ML 1 ML SYRINGE IVP PRN (07:02)
[2020-06-24] MEDS ORDERED: diazePAM 5 MG TAB PO PRN (07:02)
[2020-06-24] MEDS ORDERED: NALOXONE 0.4 MG/ML 1 ML VIAL IV PRN (07:02)
[2020-06-24] MEDS ORDERED: MAGNESIUM HYDROXIDE 2,400 MG/10 ML CUP PO PRN (07:02)
[2020-06-24] MEDS ORDERED: ONDANSETRON 4 MG/2 ML VIAL IVP PRN (07:02)
[2020-06-24] MEDS ORDERED: HYDROmorphone 0.5 MG/0.5 ML SYRINGE IVP PRN (07:02)
[2020-06-24] MEDS ORDERED: HYDROcodone/APAP 5-325MG 1 EACH TAB PO PRN ×2 (07:02)
[2020-06-24] MEDS ORDERED: HYDROmorphone 0.2 MG/1 ML SYRINGE IVP PRN (07:02)
[2020-06-24] MEDS ORDERED: hydrOXYzine pamoate 25 MG CAP PO PRN (07:02)
[2020-06-24] MEDS ORDERED: HYDROcodone/APAP 7.5-325MG 1 EACH TAB PO PRN ×2 (07:13)
[2020-06-24] MEDS ORDERED: SODIUM CHLORIDE 0.9% 1,000 ML IV SCH (07:15)
--- NOTE | 2020-06-24 08:23 | P.OP ---
Date of Procedure: 06/24/20 Preoperative Diagnosis: Severe osteoarthritis left hip Postoperative Diagnosis: Severe Osteoarthritis left hip Procedure(s) Performed: Left total hip arthroplasty with a direct anterior approach Implants: [employer]hew Polarstem standard size 5 [employer]hew R3, 3 hole hemispherical acetabular shell, 56 mm [employer]hew Reflection 6.5 mm cancellus screw, 20 mm 2 [employer]hew R3, XLPE 20 acetabular liner [employer]hew Oxinium femoral head 36 m, +0 All components were press-fit. The articulation is Oxinium on polyethylene. Anesthesia: GETA Surgeon: Guillermo Preciado Patient Relations Director #1: Tierra Colindres Estimated Blood Loss (ml): 400 (134 mL returned with Cell Saver) Pathology: other (Femoral head) Condition: stable Disposition: PACU Indications for Procedure: After failure of conservative treatment we discussed the surgical and nonsurgical treatment options at length. Patient wishes to proceed with a total hip arthroplasty with a direct anterior approach. Complications specific to this procedure were discussed at length, including but not limited to infection, leg length discrepancy, dislocation, nerve injury, and fracture. Covid-19 was also discussed at length with the patient, and they are aware of the current policies and procedures. The patient was given the option of delaying surgery, but they elect to proceed knowing these risks. Patient is aware of all these complications and informed consent was obtained Operative Findings: The operative findings are consistent with severe osteoarthritis of the left hip Description of Procedure: Patient was seen and evaluated in the preoperative area and the consent was reviewed. The operative site was marked with a skin marker. The patient was then brought to the operating room and given preoperative antibiotics intravenously. 1 g of Tranexamic acid was also given intravenously. A general anesthetic was administered by the anesthesia department. The patient was then placed on the [place] table with the bony prominences well-padded. The hip area was then prepped with a ChloraPrep solution and draped in the usual sterile fashion. A universal timeout was then performed, which confirmed the patient's name, surgical site, ALLERGIES, and procedure being performed on the consent. Next the incision site was located at the flexion crease of the left hip. The skin and subcutaneous tissues were sharply incised. Incision was carefully dissected down to the fascia overlying the tensor fascia yina muscle. This fascia was then incised in line with the incision. Care was taken to stay laterally in order to avoid injuring the lateral femoral cutaneous nerve. Next, using blunt finger dissection, the tensor fascia yina muscle was dissected off its investing fascia. The muscle was then carefully retracted laterally with a cobra retractor over the lateral neck of the femur. Next, the circumflex vessels were identified and cauterized using the AquaMantis device. The anterior hip capsule was then exposed. The capsule was then opened and an inverted T fashion. Cobra retractors were then placed intracapsularly. The retractors were maintained intracapsular throughout the procedure. The proximal femur was then visualized. A small amount of traction was placed on the leg. The femoral neck was then osteotomized appropriate level above the lesser trochanter. A small wedge of bone was then removed from the remaining femoral head. Next, using a corkscrew the femoral head was removed from the acetabulum. On gross visual inspection, the femoral head had complete loss of articular cartilage and multiple periarticular osteophytes. The femoral head was then measured. Attention was then turned to the acetabulum. The acetabulum was exposed and any remaining labrum was excised. Sequential reaming of the acetabulum was performed using fluoroscopic guidance until there was a good bed of bleeding cancellus bone. When the appropriate size was reached, a trial was then placed. The position and fit of the trial was checked with fluoroscopy. The trial was then removed. Then, using fluoroscopic guidance, the final implant was impacted at 20 of anteversion and 40 of abduction, and fully seated in the acetabulum. 2 screws were then placed in the acetabulum. Again fluoroscopy was used to check position of the screws. Next, the liner was then impacted, with a 20 elevated liner located in the anterior superior quadrant. Component locking was confirmed. Attention was then directed to the femur. With the aid of the [place] table, the femur was externally rotated to approximately 130, extended, and adducted under the opposite leg. A side hook was then placed under the proximal femur, and the side hook elevator was used to elevate the proximal femur while releasing the capsule. Retractors were then placed. A capsular release was performed, as well as a release of the conjoined tendon, which afforded excellent visualization of the proximal femur. Next, a box osteotome was used to lateralize the proximal femur. A ripening room hand was then used to locate the femoral canal. Sequential broaching was then performed with appropriate size which afforded excellent fixation in the proximal femur. A trial was then placed with appropriate head and neck, and the hip was gently reduced with the aid of the [place] table. Fluoroscopy was then used to check position of the components, as well as to ensure equal leg lengths. The hip was then gently dislocated and the trials were then removed. Final implants were then impacted and the hip was again reduced. Final fluoroscopic x-rays confirmed that the components were in anatomic position, as well as equal leg lengths. The hip was also taken through range of motion, and found to be stable. The hip was then copiously irrigated with antibiotic solution with pulsatile lavage. The hip was then irrigated with Irrisept solution. The soft tissues were then injected with a ropivacaine solution, which consisted of 246.25 mg of ropivacaine, 0.5 mg of epinephrine, 30 mg of Toradol, 80 g of clonidine, and 48.45 mL of sterile water, for a total of 100 mL of fluid injected. A second dose of 1 g of Tranexamic acid was also given intravenously. Any blood collected by Cell Saver was then returned to the patient at this time. The fascia was then closed with 2-0 strata fix suture. The subcutaneous tissue was closed with 3-0 Vicryl. The subcuticular tissue was closed with 3-0 strata fix suture. The skin was then closed with Exofin skin glue. After the glue and dried, and Optifoam silver impregnated dressing was applied. The patient was then transferred to the recovery room in stable condition. The assistant designer SUSANA Urrutia was required due to the complexity of surgery, and the need for skilled director medical surgical for positioning, draping, exposure, retraction, and closure of the wound.
[2020-06-24] MEDS ORDERED: HYDROmorphone 0.5 MG/0.5 ML SYRINGE IVP ONE ×4 (08:49→09:30)
[2020-06-24] MEDS ORDERED: ASPIRIN 325 MG TAB PO SCH (09:00)
[2020-06-24 09:08] VITALS: TEMP 97.8
--- NOTE | 2020-06-24 09:09 | XR ---
Fluoroscopy History: left anterior hip 1 min 11 sec fl time used left anterior hip
[2020-06-24] MEDS ORDERED: LACTATED RINGERS 1,000 ML IV ONE (09:20)
[2020-06-24] MEDS ORDERED: KETOROLAC 15 MG/ML 1 ML VIAL IVP ONE (09:32)
[2020-06-24] MEDS: fentaNYL (PF) 50 MCG/ML 2 ML AMP IV PRN ×2 (09:40→09:46)
[2020-06-24 10:36] VITALS: RESP 16
[2020-06-24] MEDS ORDERED: HYDROcodone/APAP 7.5-325MG 1 EACH TAB PO ONE (10:46)
[2020-06-24 13:41] VITALS: BP 121/81; PULSE 71
[2020-06-24] MEDS ORDERED: SENNOSIDES-DOCUSATE SODIUM 1 EACH TAB PO SCH (21:00)
== END 2020-06-24 14:10 | disposition home health service (06) ==
LOC: OR 05:32
PROVIDERS: ATTEND Orthopaedic Surgery
DX: M16.0 Bilateral primary osteoarthritis of hip (principal); M25.752 Osteophyte, left hip; I10 Essential (primary) hypertension; E78.5 Hyperlipidemia, unspecified; K21.9 Gastro-esophageal reflux disease without esophagitis; Z97.3 Presence of spectacles and contact lenses; Z82.49 Family history of ischemic heart disease and other diseases of the circulatory system; Z98.890 Other specified postprocedural states; Z87.891 Personal history of nicotine dependence; Z98.52 Vasectomy status
CPT/HCPCS: 97110; 97161; 86891; 86900; 86901; 86850; 88300; 73501; 27130; C1776; J2250; J0171; J0330; J1644; J1100; J0690; J2405; J2001; J3010; J1885 ×2; J2795; J2704; J0735; J1170

== ENCOUNTER → 2020-09-15 | Outpatient (CLI) | payer MEDICAID ==
[2020-09-15 15:09] LABS: Appearance,Urine Clear (Clear); Bilirubin,Urine Negative (Negative); Blood,Urine Negative (Negative); Color,Urine Yellow; Glucose,Urine (UA) Negative (Negative); HCT 43.2 % (39.0-53.0); HGB 14.8 gm/dL (13.0-17.5); Ketones,Urine Negative (Negative); Leukocyte Esterase,Urine Negative (Negative); MCH 30.7 pg (25.0-35.0); MCHC 34.4 g/dL (31.0-37.0); MCV 89.3 fL (80.0-100.0); Mean Platelet Volume 6.9; Nitrite,Urine Negative (Negative); PH, Urine 6.5 (5.0-8.0); Platelet Count 343 k/uL (150-450); Protein,Urine Negative (Negative); RBC 4.84 m/uL (4.30-5.90); Specific Gravity,Urine 1.019 (1.001-1.035); Urobilinogen,Urine <2.0 mg/dL (<2.0); WBC 6.3 k/uL (3.8-10.6)
[2020-09-15 15:21] LABS: ALT 22 U/L (4-49); AST 25 U/L (17-59); African American GFR (CKD) >90 (>60 ml/min/1.73 sqM); Albumin 4.4 g/dL (3.5-5.0); Alkaline Phosphatase 77 U/L (38-126); Anion Gap 8 mmol/L; Blood Urea Nitrogen 17 mg/dL (9-20); Calcium 10.1 mg/dL (8.4-10.2); Carbon Dioxide 27 mmol/L (22-30); Chloride 101 mmol/L (98-107); Glucose 97 mg/dL (74-99); Non-African American GFR(CKD) 89 (>60 ml/min/1.73 sqM); Potassium 4.2 mmol/L (3.5-5.1); Sodium 136 mmol/L (137-145); Total Bilirubin 0.7 mg/dL (0.2-1.3); Total Protein 7.1 g/dL (6.3-8.2)
[2020-09-15 15:54] LABS: Partial Thromboplastin Time 23.2 sec (22.0-30.0); Prothrombin Time 10.3 sec (9.0-12.0)
== END | disposition home or self-care (01) ==
LOC: LABPAT 14:02
PROVIDERS: ATTEND Orthopaedic Surgery
DX: Z01.812 Encounter for preprocedural laboratory examination (principal); M16.11 Unilateral primary osteoarthritis, right hip
CPT/HCPCS: 80053; 81003; 85027; 85610; 85730; 87070; 93005

== ENCOUNTER 2020-09-22 05:57 | Day surgery (SDC) | payer MEDICAID ==
[2020-09-15 16:02] VITALS: BMI 26.1
[~2020-09-22 05:57] MED LIST changes: -LACTATED RINGERS 1,000 ML IV SCH; -LIDOCAINE 1% (10MG/ML) FOR IV START INTRADERMA PRN; -MIDAZOLAM 2 MG/2 ML VIAL IV PRN; -ROPIVACAINE 246.25 MG, EPINEPHrine 0.5 MG, KETOROLAC 30 MG, cloNIDine HCL/PF 80 MCG, WA... MISCELLANE PRN; +ROPIVACAINE/EPI/CLONIDINE/KET 50 ML SYRINGE MISCELLANE PRN
[2020-09-22] MEDS ORDERED: ONDANSETRON 4 MG/2 ML VIAL IVP ONE (05:58)
[2020-09-22] MEDS ORDERED: LIDOCAINE 1% (10MG/ML) FOR IV START INTRADERMA PRN (05:58)
[2020-09-22] MEDS: LACTATED RINGERS 1,000 ML IV SCH ×2 (06:39→11:42)
[2020-09-22] MEDS ORDERED: DEXAMETHASONE SOD PHOSPHATE 4 MG/ML 1 ML VIAL IV ONE (06:40)
[2020-09-22] MEDS ORDERED: SCOPOLAMINE 1.5MG/72HR PATCH TRANSDERM ONE (06:40)
[2020-09-22] MEDS ORDERED: SODIUM CHLORIDE 0.9% IRRIG 1,000 ML BTL IRRIGATION ONE (06:58)
[2020-09-22] MEDS ORDERED: HYDROmorphone (PF) 1 MG/ML ONE (06:58)
[2020-09-22] MEDS ORDERED: TRANEXAMIC ACID 1,000 MG/10 ML VIAL ONE (06:58)
[2020-09-22] MEDS ORDERED: fentaNYL (PF) 50 MCG/ML 2 ML AMP ONE (06:58)
[2020-09-22] MEDS ORDERED: LIDOCAINE 1% INJ 10MG/ML (20 ML MDV) ONE (06:58)
[2020-09-22] MEDS ORDERED: HEPARIN SODIUM,PORCINE 10,000 UNIT/ML 1 ML VIAL ONE (06:58)
[2020-09-22] MEDS ORDERED: ONDANSETRON 4 MG/2 ML VIAL ONE (06:58)
[2020-09-22] MEDS ORDERED: SUCCINYLCHOLINE CHLORIDE 100 MG/5 ML SYR IV ONE (06:58)
[2020-09-22] MEDS ORDERED: PROPOFOL 10 MG/ML 20 ML VIAL IV ONE (06:58)
[2020-09-22] MEDS ORDERED: MIDAZOLAM 2 MG/2 ML VIAL ONE (06:58)
[2020-09-22] MEDS ORDERED: SODIUM CHLORIDE 0.9% 100 ML BAG ONE (06:58)
[2020-09-22] MEDS ORDERED: ePHEDrine SULFATE/0.9% NACL/PF 50 MG/5 ML SYRINGE IV ONE (06:58)
[2020-09-22] MEDS ORDERED: HYDROmorphone 1 MG/ML 1 ML SYRINGE IVP PRN (07:05)
[2020-09-22] MEDS ORDERED: HYDROmorphone 0.2 MG/1 ML SYRINGE IVP PRN (07:05)
[2020-09-22] MEDS ORDERED: ONDANSETRON 4 MG/2 ML VIAL IVP PRN (07:05)
[2020-09-22] MEDS ORDERED: NALOXONE 0.4 MG/ML 1 ML VIAL IV PRN (07:05)
[2020-09-22] MEDS ORDERED: HYDROmorphone 0.5 MG/0.5 ML SYRINGE IVP PRN (07:05)
[2020-09-22] MEDS ORDERED: HYDROcodone/APAP 7.5-325MG 1 EACH TAB PO PRN ×2 (07:06)
[2020-09-22] MEDS ORDERED: SODIUM CHLORIDE 0.9% 1,000 ML IV SCH (07:15)
[2020-09-22] MEDS ORDERED: ceFAZolin 3,000 MG in SODIUM CHLORIDE 0.9% IRRIGATIO 3,000 ML IRRIGATION ONE (07:29)
[2020-09-22] MEDS ORDERED: LACTATED RINGERS 1,000 ML IV ONE (08:36)
--- NOTE | 2020-09-22 08:39 | P.OP ---
Date of Procedure: 09/22/20 Preoperative Diagnosis: Severe osteoarthritis right hip Postoperative Diagnosis: Severe osteoarthritis right hip Procedure(s) Performed: Right total hip arthroplasty with a direct anterior approach Implants: [employer] Polarstem standard size 4 [employer]hew R3, 3 hole hemispherical acetabular shell, 54 mm [employer]hew Reflection 6.5 mm cancellus screw, 20 mm 2 [employer] R3, XLPE 20 acetabular liner [employer] Oxinium femoral head 36 m, +0 All components were press-fit. The articulation is Oxinium on polyethylene. Anesthesia: GETA Surgeon: Guillermo Preciado Athletics Director #1: Tierra Colindres Estimated Blood Loss (ml): 250 (70 mL returned with Cell Saver) Pathology: other (Femoral head) Condition: stable Disposition: PACU Indications for Procedure: After failure of conservative treatment we discussed the surgical and nonsurgical treatment options at length. Patient wishes to proceed with a total hip arthroplasty with a direct anterior approach. Complications specific to this procedure were discussed at length, including but not limited to infection, leg length discrepancy, dislocation, nerve injury, and fracture. Covid-19 was also discussed at length with the patient, and they are aware of the current policies and procedures. The patient was given the option of delaying surgery, but they elect to proceed knowing these risks. Patient is aware of all these complications and informed consent was obtained Operative Findings: Operative findings are consistent with severe osteoarthritis of the right hip Description of Procedure: Patient was seen and evaluated in the preoperative area and the consent was reviewed. The operative site was marked with a skin marker. The patient was then brought to the operating room and given preoperative antibiotics intravenously. 1 g of Tranexamic acid was also given intravenously. A general anesthetic was administered by the anesthesia department. The patient was then placed on the [place] table with the bony prominences well-padded. The hip area was then prepped with a ChloraPrep solution and draped in the usual sterile fashion. A universal timeout was then performed, which confirmed the patient's name, surgical site, ALLERGIES, and procedure being performed on the consent. Next the incision site was located at 1 cm distal to the anterior superior iliac spine along the flexion crease of the hip. The skin and subcutaneous tissues were sharply incised. Incision was carefully dissected down to the fascia overlying the tensor fascia yina muscle. This fascia was then incised in line with the incision. Care was taken to stay laterally in order to avoid injuring the lateral femoral cutaneous nerve. Next, using blunt finger dissection, the tensor fascia yina muscle was dissected off its investing fascia. The muscle was then carefully retracted laterally with a cobra retractor over the lateral neck of the femur. Next, the circumflex vessels were identified and cauterized using the AquaMantis device. The anterior hip capsule was then exposed. The capsule was then opened and an inverted T fashion. Cobra retractors were then placed intracapsularly. The retractors were maintained intracapsular throughout the procedure. The proximal femur was then visualized. A small amount of traction was placed on the leg. The femoral neck was then osteotomized appropriate level above the lesser trochanter. A small wedge of bone was then removed from the remaining femoral head. Next, using a corkscrew the femoral head was removed from the acetabulum. On gross visual inspection, the femoral head had complete loss of articular cartilage and multiple periarticular osteophytes. The femoral head was then measured. Attention was then turned to the acetabulum. The acetabulum was exposed and any remaining labrum was excised. Sequential reaming of the acetabulum was performed using fluoroscopic guidance until there was a good bed of bleeding cancellus bone. When the appropriate size was reached, a trial was then placed. The position and fit of the trial was checked with fluoroscopy. The trial was then removed. Then, using fluoroscopic guidance, the final implant was impacted at 20 of anteversion and 40 of abduction, and fully seated in the acetabulum. 2 screws were then placed in the acetabulum. Again fluoroscopy was used to check position of the screws. Next, the liner was then impacted, with a 20 elevated liner located in the anterior superior quadrant. Component locking was confirmed. Attention was then directed to the femur. With the aid of the [place] table, the femur was externally rotated to approximately 130, extended, and adducted under the opposite leg. A side hook was then placed under the proximal femur, and the side hook elevator was used to elevate the proximal femur while releasing the capsule. Retractors were then placed. A capsular release was performed, as well as a release of the conjoined tendon, which afforded excellent visualization of the proximal femur. Next, a box osteotome was used to lateralize the proximal femur. A stablehand was then used to locate the femoral canal. Sequential broaching was then performed with appropriate size which afforded excellent fixation in the proximal femur. A trial was then placed with appropriate head and neck, and the hip was gently reduced with the aid of the [place] table. Fluoroscopy was then used to check position of the components, as well as to ensure equal leg lengths. The hip was then gently dislocated and the trials were then removed. Final implants were then impacted and the hip was again reduced. Final fluoroscopic x-rays confirmed that the components were in anatomic position, as well as equal leg lengths. The hip was also taken through range of motion, and found to be stable. The hip was then copiously irrigated with antibiotic solution with pulsatile lavage. The hip was then irrigated with Irrisept solution. The soft tissues were then injected with a ropivacaine solution, which consisted of 246.25 mg of ropivacaine, 0.5 mg of epinephrine, 30 mg of Toradol, 80 g of clonidine, and 48.45 mL of sterile water, for a total of 100 mL of fluid injected. A second dose of 1 g of Tranexamic acid was also given intravenously. Any blood collected by Cell Saver was then returned to the patient at this time. The fascia was then closed with 2-0 strata fix suture. The subcutaneous tissue was closed with 3-0 Vicryl. The subcuticular tissue was closed with 3-0 strata fix suture. The skin was then closed with Exofin skin glue. After the glue and dried, and Optifoam silver impregnated dressing was applied. The patient was then transferred to the recovery room in stable condition. The assistant merchandise manager SUSANA Urrutia was required due to the complexity of surgery, and the need for skilled surgical instrument mechanic for positioning, draping, exposure, retraction, and closure of the wound.
[2020-09-22] MEDS: HYDROmorphone 0.5 MG/0.5 ML SYRINGE IVP PRN ×4 (08:51→09:13)
[2020-09-22 08:53] VITALS: TEMP 97
--- NOTE | 2020-09-22 09:06 | XR ---
EXAMINATION TYPE: XR Hip Limited RT DATE OF EXAM: 09/22/2020 CLINICAL HISTORY: Postoperative evaluation TECHNIQUE: Single portable view of the right hip was submitted. FINDINGS: Noted are changes of total hip arthroplasty with femoral and acetabular components appearin g well seated. Alignment is anatomic. Postsurgical soft tissue changes are evident. IMPRESSION: Satisfactory postoperative alignment
[2020-09-22] MEDS ORDERED: diphenhydrAMINE 50 MG/ML 1 ML VIAL IVP ONE (09:19)
--- NOTE | 2020-09-22 09:21 | FL ---
Fluoroscopy History: TOTAL ANT HIP RIGHT DR. JENNINGS SUPERVISED USE OF DANA FOR A TOTAL ANT HIP RIGHT. FL TIME OF 0.36 MINS
[2020-09-22 09:58] VITALS: RESP 16
[2020-09-22 12:25] VITALS: BP 112/71; PULSE 59
--- NOTE | 2020-09-22 14:28 | XR ---
EXAMINATION TYPE: XR Hip Limited RT DATE OF EXAM: 09/22/2020 CLINICAL HISTORY: Right hip pain and osteoarthritis. TECHNIQUE: 2 AP portable views of the right hip are obtained intraoperatively. COMPARISON: None. FINDINGS: Metallic hardware from total right hip arthroplasty is seen and appears satisfactory in ali gnment and position on frontal projection. IMPRESSION: As above.
== END 2020-09-22 13:50 | disposition home health service (06) ==
LOC: OR 05:57
PROVIDERS: ATTEND Orthopaedic Surgery
DX: M16.11 Unilateral primary osteoarthritis, right hip (principal); I10 Essential (primary) hypertension; E78.5 Hyperlipidemia, unspecified; K21.9 Gastro-esophageal reflux disease without esophagitis; Z97.3 Presence of spectacles and contact lenses; Z96.642 Presence of left artificial hip joint; Z98.890 Other specified postprocedural states; Z82.49 Family history of ischemic heart disease and other diseases of the circulatory system; Z87.891 Personal history of nicotine dependence; Z98.52 Vasectomy status; Z79.899 Other long term (current) drug therapy
CPT/HCPCS: 97110; 97161; 86891; 86900; 86901; 86850; 88300; 73501; 27130; P9022; C1776; J2250; J1200; J1644; J1100; J0690 ×2; J2405; J2001; J3010; J1170 ×2; J0330; J2704

== ENCOUNTER → 2021-04-25 | Outpatient (CLI) | payer MEDICAID ==
--- NOTE | 2021-04-26 04:07 | MR ---
EXAMINATION TYPE: MR foot RT wo/w con DATE OF EXAM: 04/25/2021 COMPARISON: None HISTORY: Right foot pain and swelling for 1 year. Benign lesion of bone, 1st MPJ. History of surgery on second toe, plug was placed in toe. CONTRAST: Standard multiplanar, multisequence MRI departmental protocol images were obtained without contrast a nd with 9 mL intravenous Gadavist gadolinium contrast. There is soft tissue edema around the second metatarsal head. There is 10 mm cystic area in the base of the proximal phalanx of the second toe. There is apparent rectangular prosthesis in the second MP joint. There is some edema in the second metatarsal head at the prosthesis. There is also patchy incr eased signal in the base of the third metatarsal consistent with edema. There is slight increased sig nal also in the base of the fourth metatarsal. The Achilles tendon is intact. Plantar fascia appears intact. Medial and lateral flexor tendons of th e foot appear intact. There is increased fluid signal around the medial flexor tendons of the foot. IMPRESSION: There is some edema in the base of the third fourth metatarsals. There is postsurgical changes with s ubcutaneous edema on both sides of the second MP joint with apparent joint prosthesis. There is soft tissue edema around the second MP joint. No discrete fluid collection. Mild hallux valgus. Fluid around the medial flexor tendons consistent with some synovitis.
== END | disposition home or self-care (01) ==
LOC: RADMRIMAIN 15:16
PROVIDERS: ATTEND Podiatrist
DX: R60.0 Localized edema (principal); M20.11 Hallux valgus (acquired), right foot
CPT/HCPCS: 73720; A9585

== ENCOUNTER → 2021-05-15 | Day surgery (SDC) | payer MEDICAID ==
[2021-05-12 08:57] VITALS: BMI 26.6
[~2021-05-15] MED LIST changes: -ACETAMINOPHEN TAB 500 MG TAB PO PRN; +BUPIVACAINE (PF) 0.25% 30 ML VIAL SQ ONE; +DEXAMETHASONE SOD PHOSPHATE 4 MG/ML 1 ML VIAL IV ONE; -GABAPENTIN 300 MG CAP PO PRN; +LACTATED RINGERS 1,000 ML IV SCH; +LIDOCAINE 1% INJ 10MG/ML (20 ML MDV) ONE; -MELOXICAM 7.5 MG TAB PO PRN; +MIDAZOLAM 2 MG/2 ML VIAL IV PRN; +MIDAZOLAM 2 MG/2 ML VIAL ONE; +ONDANSETRON 4 MG/2 ML VIAL IVP ONE; +ONDANSETRON 4 MG/2 ML VIAL ONE; +PROPOFOL 10 MG/ML 20 ML VIAL IV ONE; +Pre Op ABX Message 1 EACH MISC MISCELLANE ONE; -ROPIVACAINE/EPI/CLONIDINE/KET 50 ML SYRINGE MISCELLANE PRN; +SCOPOLAMINE 1.5MG/72HR PATCH TRANSDERM ONE; -TRANEXAMIC ACID 1,000 MG in SODIUM CHLORIDE 0.9% 100 ML IVPB PRN; +fentaNYL (PF) 50 MCG/ML 2 ML AMP ONE
[2021-05-15] MEDS: HYDROmorphone 0.5 MG/0.5 ML SYRINGE IVP PRN ×2 (15:05→15:15)
[2021-05-15 15:41] VITALS: TEMP 96.8
--- NOTE | 2021-05-15 15:49 | P.OP ---
Date of Procedure: 05/15/21 Preoperative Diagnosis: 1. Failed implant right second metatarsal phalangeal joint 2. Osseous cyst proximal phalanx right second toe Postoperative Diagnosis: 1. Same 2. Same Procedure(s) Performed: 1. Repair of osseous cyst with allograft proximal phalanx right second toe 2. Repair of osseous cyst with allograft second metatarsal right foot 3. Removal of deep implant right foot Implants: 2 mL [employer] ProDense Anesthesia: GETA Surgeon: Issac Hernandez Estimated Blood Loss (ml): 2 Pathology: none sent Condition: stable Disposition: PACU Operative Findings: Subsisted implant right second metatarsal Rhit the base of the proximal phalanx second toe had a thick gelatinous fluid Description of Procedure: The patient was brought into the operating room placed on the table in the supine position Timeout was taken to confirm correct patient identifiers, correct site surgery, and correct procedure. The tunnel was in agreement with the staff, the patient was induced and placed under general anesthesia. A well- padded tourniquet was placed on the right ankle and then 20 mL 0.25% Marcaine was injected as right ankle block. Right foot was then prepped and draped usual manner. The foot was exsanguinated the tourniquet inflated 250 motors mercury. Attention directed over the dorsal aspect of second metatarsal phalangeal joint where a lazy S incision was made over the joint. The incision deepened down to the subcutaneous tissue careful to identify, avoid, and retract any neurovascular structures and cauterize any bleeding vessels. Capsular was made medial to the long extensor tendons and reflected from the second metatarsal head and the base of proximal phalanx. There is a significant inflammatory tissue that was present that was sharply debrided from the underlying capsule. Then the joint was distracted and the implant and the second metatarsal was identified. The implant was grasped and easily removed and taken from the surgical field. A curette was removed used to remove the soft tissue within the area with the implant was seated and then the remove any cortical bone down the medullary bone. Small osteotome was used to break up any the cortical bone of the femoral bleeding. Then attention directed to the proximal phalanx were Yaya was used to remove the dorsal cortex. Once deep enough THICK yellow gelatinous fluid emerged from the proximal phalanx base. A curette was used to remove all the fluid and the cortical bone to promote bleeding into the area. Then the [employer] pro-dense was mixed on the back table and allowed to become firm and pliable. Then the 3 was placed in the defect created by the removal of the implant. As well as to fill the cyst in the proximal phalanx. Once it was firm enough the area was irrigated with antibiotic saline. The caps ule was closed with 2-0 Vicryl. Subcu closure was done with 4-0 Monocryl. And skin closure was done with3-0 Stratafix in a running subcuticular manner. Dermal glue and Steri-Strips are placed across incision. An Arthrex jumpstart dressing was positioned over the incision then a bulky dry dressing applied to the right foot. The tourniquet was released and capillary refill return to all digits on the right foot. The patient was then placed in a well-padded, well molded plaster posterior mold/sugar tong splint. Ankle and foot were held in neutral position until dried. Anesthesia was reversed patient was taken recovery with vital signs stable.
[2021-05-15 16:18] VITALS: BP 138/88; PULSE 62; RESP 17
== END | disposition home or self-care (01) ==
LOC: OR 12:35
PROVIDERS: ATTEND Podiatrist
DX: T84.293A Other mechanical complication of internal fixation device of bones of foot and toes, initial encounter (principal); M85.671 Other cyst of bone, right ankle and foot; I10 Essential (primary) hypertension; K30 Functional dyspepsia; Z97.3 Presence of spectacles and contact lenses; Z79.899 Other long term (current) drug therapy; Z96.643 Presence of artificial hip joint, bilateral; Z98.890 Other specified postprocedural states; Z82.49 Family history of ischemic heart disease and other diseases of the circulatory system; Z87.891 Personal history of nicotine dependence
CPT/HCPCS: 28124; 28122; 28022; C1713; J2250; J1100; J0690; J2405; J2001; J3010; J2704; J1170

== ENCOUNTER 2021-11-06 10:20 | Day surgery (SDC) | payer MEDICAID ==
[2021-11-04 11:27] VITALS: BMI 25.7
[~2021-11-06 10:20] MED LIST changes: -BUPIVACAINE (PF) 0.25% 30 ML VIAL SQ ONE; +HYDROmorphone 0.5 MG/0.5 ML SYRINGE IVP PRN; +LIDOCAINE 1% (10MG/ML) FOR IV START INTRADERMA PRN; -LIDOCAINE 1% INJ 10MG/ML (20 ML MDV) ONE; -MIDAZOLAM 2 MG/2 ML VIAL ONE; -ONDANSETRON 4 MG/2 ML VIAL ONE; -PROPOFOL 10 MG/ML 20 ML VIAL IV ONE; -Pre Op ABX Message 1 EACH MISC MISCELLANE ONE; -SCOPOLAMINE 1.5MG/72HR PATCH TRANSDERM ONE; -fentaNYL (PF) 50 MCG/ML 2 ML AMP ONE
[2021-11-06] MEDS ORDERED: SCOPOLAMINE 1 MG/72 HR PATCH TRANSDERM ONE (11:50)
[2021-11-06] MEDS ORDERED: fentaNYL (PF) 50 MCG/ML 2 ML AMP ONE (15:04)
[2021-11-06] MEDS ORDERED: ePHEDrine 50 MG/ML 1 ML VIAL ONE (15:04)
[2021-11-06] MEDS ORDERED: MIDAZOLAM 2 MG/2 ML VIAL ONE (15:04)
[2021-11-06] MEDS ORDERED: KETOROLAC 15 MG/ML 1 ML VIAL ONE (15:04)
[2021-11-06] MEDS ORDERED: PROPOFOL 10 MG/ML 20 ML VIAL IV ONE (15:04)
[2021-11-06] MEDS ORDERED: BUPIVACAINE (PF) 0.25% 30 ML VIAL SQ ONE (15:24)
[2021-11-06] MEDS ORDERED: LACTATED RINGERS 1,000 ML IV ONE (15:47)
[2021-11-06 16:20] VITALS: TEMP 97.6
--- NOTE | 2021-11-06 16:26 | P.OP ---
Date of Procedure: 11/06/21 Preoperative Diagnosis: Secondary osteoarthritis second metatarsalphalangeal joint right foot Postoperative Diagnosis: Same Procedure(s) Performed: Second metatarsalphalangeal joint implant arthroplasty right foot Implants: Arthrosurface metatarsal bryan implant Anesthesia: RUFUSA Surgeon: Issac Hernandez Estimated Blood Loss (ml): 10 Pathology: none sent Condition: stable Disposition: PACU Indications for Procedure: Patient had a previous implant arthroplasty with a Cartiva implant. The implant failed which required bone grafting of the location of the implant as well as a cyst that it formed on the base of the proximal phalanx of the second toe. The patient underwent removal of the implant and filling of the bony defects with AURSOS ProDense. Once the material sufficiently incorporated in converted to the patient's own bone, continued pain the joint dictated the basement of the joint implant. X-ray show that there were severe degenerative changes of the second metatarsal phalangeal joint. Description of Procedure: The patient was brought into the operating room and placed on the table supine position. Timeout was taken to confirm correct patient identifiers, correct laterality of surgery, and correct procedure. When all staff in the room were in agreement with the timeout, anesthesia induced and placed the patient under general anesthesia. Then 20 mL of 0.25% Marcaine was injected as a posterior tibial nerve block as well as a forefoot block. The right foot was prepped and draped in the usual manner. A previous surgical scar was used for today's incision. The incision was deepened down to the subcutaneous tissue careful to identify, avoid, and retract any neurovascular structures and cauterize any bleeding vessels. Blunt dissection was continued down to the second metatarsal phalangeal joint capsule. Incision was made to the capsule medial to the long extensor to the second digit. And then the capsular structures were reflected off their osseous attachments of the second metatarsal head as well as the base of the proximal phalanx of the second toe. Visual inspection of the joint revealed significant osteophytic formation surrounding the second metatarsal head with complete erosion of the articular cartilage. The guidewire was then placed in the central aspect of the second metatarsal head and advanced into the medullary canal while utilizing fluoroscopy. Once wire was then appropriate depth, the reamer was placed over the wire and advanced to the laser line marking. The hole was then tapped and then the screw inserted down to the appropriate depth. With the wire still in place the reamer was placed over the wire and advanced to ream the bone to the proper shape with the natural stop against the implant. The temporary sizing implant was positioned so that the excessive bone of the second metatarsal head could be safely removed about damaging the surface where the implant would be seated. Once that was completed it was determined that the type of implant would have the least amount of curvature to match with the patient had anatomically. The wire was removed and then the implant was positioned appropriately and then impacted into the screw and the second metatarsal. Once completed fluoroscopy confirmed that the position of the implant was appropriate. Range of motion of the second metatarsal phalangeal joint was smooth, full and non-crepitant. All roughened bone edges of the second metatarsal head were smoothed with a rasp and then the wound is thoroughly irrigated with sterile saline. Capsular closure was done with 2-0 Vicryl. Subcu closure was done with 4-0 Monocryl. And skin closure was done with 3-0 Stratafix in a running subcuticular manner. Dermal glue was applied Lunder dry. Steri-Strips are placed across incision. An Arthrex jumpstart dressing was placed over the incision then a dry dressing applied to the right foot.
[2021-11-06 17:03] VITALS: RESP 16
[2021-11-06 18:10] VITALS: BP 134/84; PULSE 67
== END 2021-11-06 18:00 | disposition home or self-care (01) ==
LOC: OR 10:20
PROVIDERS: ATTEND Podiatrist
DX: M19.271 Secondary osteoarthritis, right ankle and foot (principal); I10 Essential (primary) hypertension; K30 Functional dyspepsia; Z97.3 Presence of spectacles and contact lenses; Z98.890 Other specified postprocedural states; Z96.643 Presence of artificial hip joint, bilateral; Z96.693 Finger-joint replacement, bilateral; Z87.891 Personal history of nicotine dependence; J45.990 Exercise induced bronchospasm; K90.0 Celiac disease; K21.9 Gastro-esophageal reflux disease without esophagitis; Z79.899 Other long term (current) drug therapy
CPT/HCPCS: 28899; J2250; J1100; J0690; J2405; J3010; J1885; J2704

== ENCOUNTER → 2022-03-03 | Outpatient (CLI) | payer MEDICAID ==
[2022-03-03 14:28] LABS: Basophils # (A) 0.05 X 10*3/uL (0.00-0.10); Eosinophils % (A) 6.2 %; HCT 45.7 % (39.6-50.0); Immature Grans, Automated 0 %; Lymphocytes # (A) 1.55 X 10*3/uL (0.90-5.00); Lymphocytes % (A) 31.9 %; MCH 30.3 pg (27.0-32.0); MCHC 32.8 g/dL (32.0-37.0); MCV 92.3 fL (80.0-97.0); Mean Platelet Volume 9.7 fL (9.5-12.2); Monocytes # (A) 0.39 X 10*3/uL (0.20-1.00); NRBC Per 100 WBC 0 /100 WBCS (0.0-0.0); Neutrophils # (A) 2.57 X 10*3/uL (1.80-7.70); Neutrophils % (A) 52.9 %; Platelet Count 319 X 10*3/uL (140-440); RBC 4.95 X 10*6/uL (4.40-5.60); RDW 12.8 % (11.5-14.5); WBC 4.86 X 10*3/uL (4.50-10.00)
[2022-03-03 15:01] LABS: ALT 19 U/L (10-49); AST 21 U/L (14-35); African American GFR (CKD) 111.9 (60.0-200.0); Albumin 4.4 g/dL (3.8-4.9); Albumin/Globulin Ratio 1.73 (1.60-3.17); Alkaline Phosphatase 72 U/L (41-126); BUN/Creat Ratio 32.12 Ratio (12.00-20.00); Blood Urea Nitrogen 27.4 mg/dL (9.0-27.0); Calcium 9.8 mg/dL (8.7-10.3); Carbon Dioxide 28.9 mmol/L (20.0-27.5); Chloride 104 mmol/L (96-109); Globulin 2.5 g/dL (1.6-3.3); Glucose 105 mg/dL (70-110); Non-African American GFR(CKD) 96.6 (60.0-200.0); Sodium 140 mmol/L (135-145); Total Protein 6.9 g/dL (6.2-8.2)
[2022-03-03 15:02] LABS: Chol/HDL Ratio 3.17 Ratio; LDL Cholesterol,Calculated 127.2 mg/dL (0.0-131.0); VLDL Calculation 16.52 mg/dL (5.00-40.00)
== END | disposition home or self-care (01) ==
LOC: LABWHC1 07:15
PROVIDERS: ATTEND Internal Medicine Geriatric Medicine
DX: E78.5 Hyperlipidemia, unspecified (principal); K90.0 Celiac disease; N40.0 Benign prostatic hyperplasia without lower urinary tract symptoms
CPT/HCPCS: 36415; 80053; 80061; 84153; 85025

== ENCOUNTER → 2023-03-09 | Outpatient (CLI) | payer BC ==
[2023-03-09 11:11] LABS: Basophils # (A) 0.04 X 10*3/uL (0.00-0.10); Basophils % (A) 0.7 %; Eosinophils # (A) 0.22 X 10*3/uL (0.04-0.35); Eosinophils % (A) 3.9 %; HGB 15.1 d/dL (13.0-17.0); Lymphocytes # (A) 1.38 X 10*3/uL (0.90-5.00); Lymphocytes % (A) 24.7 %; MCH 30.6 pg (27.0-32.0); MCHC 33.6 d/dL (32.0-37.0); MCV 91.1 FL (80.0-97.0); Mean Platelet Volume 9.7 FL (9.5-12.2); Monocytes # (A) 0.44 X 10*3/uL (0.20-1.00); Monocytes % (A) 7.9 %; NRBC Per 100 WBC 0 X 10*3/uL (0.00-0.01); Neutrophils # (A) 3.49 X 10*3/uL (1.80-7.70); Neutrophils % (A) 62.6 %; Platelet Count 306 X 10*3/uL (140-440); RBC 4.94 X 10*6/uL (4.40-5.60); RDW 12.3 % (11.5-14.5); WBC 5.58 X 10*3/uL (4.50-10.00)
[2023-03-09 11:35] LABS: ALT 25 U/L (10-49); AST 20 U/L (14-35); Albumin 4.6 d/dL (3.8-4.9); Albumin/Globulin Ratio 2.09 Ratio (1.60-3.17); Alkaline Phosphatase 72 U/L (41-126); BUN/Creat Ratio 23.56 Ratio (12.00-20.00); Blood Urea Nitrogen 21.2 mg/dL (9.0-27.0); Calcium 9.9 mg/dL (8.7-10.3); Carbon Dioxide 27.5 mmol/L (21.6-31.8); Chloride 103 mmol/L (96-109); Chol/HDL Ratio 3.43 Ratio; Globulin 2.2 d/dL (1.6-3.3); Glucose 110 mg/dL (70-110); LDL Cholesterol,Calculated 123.5 mg/dL (0.0-131.0); Potassium 4.7 mmol/L (3.5-5.5); Prostate Specific Antigen 1.23 ng/mL (0.000-3.500); Sodium 142 mmol/L (135-145); Total Bilirubin 0.7 mg/dL (0.3-1.2); Total Protein 6.8 d/dL (6.2-8.2); VLDL Calculation 16.78 mg/dL (5.00-40.00)
== END | disposition home or self-care (01) ==
LOC: LABWHC1 07:19
PROVIDERS: ATTEND Internal Medicine Geriatric Medicine
DX: Z00.00 Encounter for general adult medical examination without abnormal findings (principal); E78.5 Hyperlipidemia, unspecified; N40.0 Benign prostatic hyperplasia without lower urinary tract symptoms; R73.9 Hyperglycemia, unspecified
CPT/HCPCS: 36415; 80053; 80061; 83036; 84153; 84443; 85025

== ENCOUNTER → 2024-05-07 | Outpatient (CLI) | payer BC ==
[2024-05-07 14:46] LABS: Basophils # (A) 0.05 X 10*3/uL (0.00-0.10); Basophils % (A) 0.9 %; Eosinophils # (A) 0.16 X 10*3/uL (0.04-0.35); Eosinophils % (A) 2.8 %; HCT 44.4 % (39.6-50.0); HGB 14.5 g/dL (13.0-17.0); Lymphocytes # (A) 2.02 X 10*3/uL (0.90-5.00); Lymphocytes % (A) 35.1 %; MCH 30.2 pg (27.0-32.0); MCHC 32.7 g/dL (32.0-37.0); MCV 92.5 FL (80.0-97.0); Mean Platelet Volume 10.1 FL (9.5-12.2); Monocytes # (A) 0.48 X 10*3/uL (0.20-1.00); Monocytes % (A) 8.3 %; NRBC Per 100 WBC 0 X 10*3/uL (0.00-0.01); Neutrophils # (A) 3.02 X 10*3/uL (1.80-7.70); Neutrophils % (A) 52.6 %; Platelet Count 339 X 10*3/uL (140-440); RDW 12.7 % (11.5-14.5); WBC 5.75 X 10*3/uL (4.50-10.00)
[2024-05-07 15:13] LABS: ALT 20 U/L (10-49); AST 17 U/L (14-35); Albumin 4.3 g/dL (3.8-4.9); Albumin/Globulin Ratio 1.87 Ratio (1.60-3.17); Alkaline Phosphatase 63 U/L (41-126); BUN/Creat Ratio 24.88 Ratio (12.00-20.00); Blood Urea Nitrogen 19.9 mg/dL (9.0-27.0); Calcium 9.6 mg/dL (8.7-10.3); Carbon Dioxide 25.8 mmol/L (21.6-31.8); Chloride 105 mmol/L (96-109); Chol/HDL Ratio 2.73 Ratio; Globulin 2.3 g/dL (1.6-3.3); Glucose 105 mg/dL (70-110); LDL Cholesterol,Calculated 111.3 mg/dL (0.0-131.0); Potassium 3.9 mmol/L (3.5-5.5); Prostate Specific Antigen 1.02 ng/mL (0.000-3.500); Sodium 141 mmol/L (135-145); Total Bilirubin 1.1 mg/dL (0.3-1.2); Total Protein 6.6 g/dL (6.2-8.2)
== END | disposition home or self-care (01) ==
LOC: LABPAT 09:39
PROVIDERS: ATTEND Internal Medicine Geriatric Medicine
DX: Z00.00 Encounter for general adult medical examination without abnormal findings (principal); E78.5 Hyperlipidemia, unspecified; N40.0 Benign prostatic hyperplasia without lower urinary tract symptoms; K90.0 Celiac disease; R73.9 Hyperglycemia, unspecified
CPT/HCPCS: 80053; 80061; 83036; 84153; 84443; 85025

== ENCOUNTER → 2024-07-03 | Outpatient (CLI) | payer BC ==
--- NOTE | 2024-07-03 15:16 | CT ---
CT right knee, WOODY protocol. HISTORY: Knee pain COMPARISON: None TECHNIQUE: Multiple axial images are obtained through the lower extremities without use of IV contras t material. The exam was performed according to the WOODY protocol FINDINGS: There is moderate to marked narrowing of the medial compartment knee along with subchondral sclerosis and tiny cyst formation as well as hypertrophic spurring. There is mild to moderate narrowing and hy pertrophic spurring of the lateral compartment. The patellofemoral compartment joint space is well-pr eserved There is no acute fracture or dislocation. There are bilateral hip prostheses which appear to be in satisfactory orientation. The ankles are normal and symmetrical without osteoarthritic change, fracture, dislocation or focal i ntraosseous abnormality. IMPRESSION: 1. Moderate to marked osteoarthritis of the medial compartment of the right knee. 2. Mild to moderate osteoarthritic changes lateral compartment of the right knee. 3. No significant arthritic changes of patellofemoral compartment 4. No ankle arthritis. 5. bilateral hip prostheses [facility], , 07/03/2024 3:13 PM
== END | disposition home or self-care (01) ==
LOC: RADCTMAIN 13:28
PROVIDERS: ATTEND Orthopaedic Surgery
DX: M17.11 Unilateral primary osteoarthritis, right knee (principal); Z96.643 Presence of artificial hip joint, bilateral

== ENCOUNTER → 2024-07-23 | Outpatient (CLI) | payer BC ==
[2024-07-23 09:11] LABS: INR 0.9 (<1.2); Partial Thromboplastin Time 22.8 sec (22.0-30.0); Prothrombin Time 10.4 sec (10.0-12.5)
[2024-07-23 15:07] LABS: HCT 44.1 % (39.6-50.0); HGB 15.3 g/dL (13.0-17.0); MCH 31.3 pg (27.0-32.0); MCHC 34.7 g/dL (32.0-37.0); MCV 90.2 FL (80.0-97.0); NRBC Per 100 WBC 0 X 10*3/uL (0.00-0.01); Platelet Count 339 X 10*3/uL (140-440); RBC 4.89 X 10*6/uL (4.40-5.60); RDW 12.7 % (11.5-14.5); WBC 4.61 X 10*3/uL (4.50-10.00)
[2024-07-23 15:20] LABS: ALT 28 U/L (10-49); AST 20 U/L (14-35); Albumin 4.4 g/dL (3.8-4.9); Albumin/Globulin Ratio 1.91 Ratio (1.60-3.17); Alkaline Phosphatase 69 U/L (41-126); BUN/Creat Ratio 29.57 Ratio (12.00-20.00); Blood Urea Nitrogen 20.7 mg/dL (9.0-27.0); Calcium 9.7 mg/dL (8.7-10.3); Chloride 101 mmol/L (96-109); Globulin 2.3 g/dL (1.6-3.3); Glucose 119 mg/dL (70-110); Potassium 4.5 mmol/L (3.5-5.5); Sodium 137 mmol/L (135-145); Total Bilirubin 0.8 mg/dL (0.3-1.2); Total Protein 6.7 g/dL (6.2-8.2)
== END | disposition home or self-care (01) ==
LOC: LABPAT 07:53
PROVIDERS: ATTEND Orthopaedic Surgery
DX: Z01.818 Encounter for other preprocedural examination (principal); M17.11 Unilateral primary osteoarthritis, right knee; R94.31 Abnormal electrocardiogram [ECG] [EKG]; Z22.322 Carrier or suspected carrier of Methicillin resistant Staphylococcus aureus
CPT/HCPCS: 80053; 83036; 85027; 85610; 85730; 87070; 93005

== ENCOUNTER 2024-08-10 05:35 | Day surgery (SDC) | payer BC ==
[2024-08-06 17:01] VITALS: BMI 25.7
[2024-08-10] MEDS: IV FLUID CONTINUATION 1,000 ML IV ONE ×6 (05:53→11:26)
[2024-08-10] MEDS ORDERED: TRANEXAMIC 1,000 MG/100ML-NACL 1,000 MG in SALINE 1 100ML.BAG IV PRN (06:00)
[2024-08-10] MEDS ORDERED: TRANEXAMIC 1,000 MG/100ML-NACL 1,000 MG in SALINE 1 100ML.BAG IVPB PRN (06:00)
[2024-08-10 06:16] LABS: Glucose,Whole Blood 116 mg/dL (70-110)
[2024-08-10] MEDS: LACTATED RINGERS 1,000 ML IV SCH (06:21)
[2024-08-10] MEDS: DOCUSATE 100 MG CAP PO PRN (06:22)
[2024-08-10] MEDS: oxyCODONE ER 10 MG TAB.ER.12H PO PRN (06:22)
[2024-08-10] MEDS: ACETAMINOPHEN TAB 500 MG TAB PO PRN (06:22)
[2024-08-10] MEDS: KETOROLAC 15 MG/ML 1 ML VIAL IVP PRN (06:23)
[2024-08-10] MEDS: ONDANSETRON 4 MG/2 ML VIAL IVP PRN (06:23)
[2024-08-10] MEDS: DEXAMETHASONE SOD PHOSPHATE 10 MG/ML 1 ML VIAL IV PRN (06:23)
[2024-08-10] MEDS: FAMOTIDINE 20 MG/2 ML VIAL IVP PRN (06:24)
[2024-08-10] MEDS: MIDAZOLAM 2 MG/2 ML VIAL IV PRN (06:40)
[2024-08-10] MEDS: fentaNYL (PF) 50 MCG/ML 2 ML AMP IVP ONE (06:55)
[2024-08-10] MEDS ORDERED: DEXAMETHASONE SOD PHOSPHATE 4 MG/ML 1 ML VIAL ONE (07:05)
[2024-08-10] MEDS ORDERED: TRANEXAMIC 1,000 MG/100ML-NACL PREMIX BAG ONE (07:05)
[2024-08-10] MEDS ORDERED: fentaNYL (PF) 50 MCG/ML 2 ML AMP ONE (07:05)
[2024-08-10] MEDS ORDERED: SUCCINYLCHOLINE CHLORIDE 200 MG/10 ML VIAL IV ONE (07:05)
[2024-08-10] MEDS ORDERED: ePHEDrine 50 MG/ML 1 ML VIAL ONE (07:05)
[2024-08-10] MEDS ORDERED: PROPOFOL 10 MG/ML 20 ML VIAL IV ONE (07:05)
[2024-08-10] MEDS ORDERED: NEOSTIGMINE 1 MG/ML 10 ML VIAL ONE (07:05)
[2024-08-10] MEDS ORDERED: LIDOCAINE 1% INJ 10MG/ML (20 ML MDV) ONE (07:05)
[2024-08-10] MEDS ORDERED: ROPIVACAINE 5 MG/ML 30 ML VIAL ONE (07:05)
[2024-08-10] MEDS ORDERED: PHENYLEPHRINE-0.9% NACL SYG 1,000 MCG/10 ML SYRINGE ONE (07:05)
[2024-08-10] MEDS ORDERED: GLYCOPYRROLATE 0.2 MG/ML 2 ML VIAL ONE (07:05)
[2024-08-10] MEDS ORDERED: ROCURONIUM 10 MG/ML (5 ML VIAL) IV ONE (07:05)
[2024-08-10] MEDS ORDERED: SODIUM CHLORIDE 0.9% (PF) 10 ML VIAL ONE (07:05)
[2024-08-10] MEDS: ROPIVACAINE/EPI/CLONIDINE/KET 50 ML SYRINGE MISCELLANE PRN (07:36)
--- NOTE | 2024-08-10 07:52 | P.ANPRN ---
Procedure Note - Anesthesia - Nerve Block Performed Right Adductor Canal Single Time Out Performed: Yes Date of Procedure: 08/10/24 Procedure Start Time: 06:39 Procedure Stop Time: 06:45 Location of Patient: PreOp Indication: Acute Post-Operative Pain, Requested by Surgeon Sedation Type: Sedate with meaningful contact maintained Preparation: Sterile Prep Position: Supine Needle Types: Pajunk Needle Gauge: 21 Ultrasound used to visualize needle placement: Yes Ultrasound used to observe medication spread: Yes Injectate: 0.5% Ropivacaine (see comment for volume) (20 mL +10 mL of normal saline +4 mg dexamethasone) Blood Aspirated: No Pain Paresthesia on Injection Noted: No Resistance on Injection: Normal Image Stored and Saved: Yes Events: Uneventful and Well Tolerated
--- NOTE | 2024-08-10 07:54 | P.ANPRN ---
Procedure Note - Anesthesia - Nerve Block Performed Right iPack Single Time Out Performed: Yes Date of Procedure: 08/10/24 Procedure Start Time: 06:46 Procedure Stop Time: 06:52 Location of Patient: PreOp Indication: Acute Post-Operative Pain, Requested by Surgeon Sedation Type: Sedate with meaningful contact maintained Preparation: Sterile Prep Position: Left Lateral Needle Types: Pajunk Needle Gauge: 21 Ultrasound used to visualize needle placement: Yes Ultrasound used to observe medication spread: Yes Injectate: 0.5% Ropivacaine (see comment for volume) (20 mL +10 mL of normal saline +4 mg dexamethasone) Blood Aspirated: No Pain Paresthesia on Injection Noted: No Resistance on Injection: Normal Image Stored and Saved: Yes Events: Uneventful and Well Tolerated
[2024-08-10] MEDS: LACTATED RINGERS 1,000 ML IV ONE ×2 (08:20→08:28)
[2024-08-10] MEDS ORDERED: HYDROcodone/APAP 10-325MG 1 EACH TAB PO PRN (09:00)
[2024-08-10] MEDS ORDERED: hydrOXYzine pamoate 25 MG CAP PO PRN (09:00)
[2024-08-10] MEDS ORDERED: HYDROcodone/APAP 5-325MG 1 EACH TAB PO PRN (09:00)
[2024-08-10] MEDS ORDERED: bisacodyL 10 MG SUPP RECTAL PRN (09:00)
[2024-08-10] MEDS ORDERED: HYDROmorphone 0.5 MG/0.5 ML SYRINGE IVP PRN ×2 (09:00)
[2024-08-10] MEDS ORDERED: TEMAZEPAM 15 MG CAP PO PRN (09:00)
[2024-08-10] MEDS ORDERED: NALOXONE 0.4 MG/ML 1 ML VIAL IV PRN (09:00)
[2024-08-10] MEDS ORDERED: MAGNESIUM HYDROXIDE 2,400 MG/30 ML CUP PO PRN (09:00)
[2024-08-10] MEDS ORDERED: diazePAM 5 MG TAB PO PRN ×2 (09:00)
[2024-08-10] MEDS ORDERED: HYDROmorphone 1 MG/ML 1 ML SYRINGE IVP PRN (09:00)
[2024-08-10] MEDS ORDERED: NA PHOS,M-B/NA PHOS,DI-BA 133 ML ENEMA RECTAL PRN (09:00)
[2024-08-10] MEDS ORDERED: ONDANSETRON 4 MG/2 ML VIAL IVP PRN (09:00)
--- NOTE | 2024-08-10 09:00 | P.OP ---
Date of Procedure: 08/10/24 Preoperative Diagnosis: Severe right knee osteoarthritis Postoperative Diagnosis: Same Procedure(s) Performed: Same Implants: 1. Reeders Triathlon CR Femur Size #7 2. Reeders Triathlon Corona Tibial Base Size #6 3. Daisy Triathlon CS poly Size #6, 9-mm 4. Reeders Triathlon all poly patella, Size #35 Anesthesia: RUFUSA, regional Surgeon: Vikram Benitez Clean In Places Operator #1: Taran Freedman Estimated Blood Loss (ml): 100 IV fluids (ml): 800 Pathology: none sent Condition: stable Disposition: PACU Indications for Procedure: I met with the patient preoperatively in the office setting and discussed angelica tment of their symptomatic knee arthritis. They failed a long course of nonsurgical treatment and elected to proceed with an elective total knee replacement. I discussed the potential risks and complications at length and gave them ample time to ask questions. Risks discussed included: risks from anesthesia, superficial site surgical infection, acute and/or chronic periprosthetic joint infection, delayed wound healing, drainage, wound necrosis, instability, stiffness, stiffness requiring manipulation and/or revision surgery, damage to local blood vessels or nerves, aseptic loosening of the implants, extensor mechanism issues including disruption, patellar maltracking, avascular necrosis etc., continued or worsened knee pain, generalized dissatisfaction with surgical outcome, need for revision surgery, an inability to regain preinjury level of function, DVT, PE, other medical complications, and possibly loss of life or limb. The patient voiced their understanding that while these are the most common complications other less common complications are possible. They provided both their verbal and written consent to go forward with surgery. Operative Findings: The patient had full-thickness cartilage loss in both the medial and lateral compartment. He also had partial-thickness cartilage loss on the undersurface of both facets of the patella. Description of Procedure: The patient was identified in preoperative holding and the correct operative extremity was verified and marked with a marker. I reviewed the consent form w ith the patient at length. All of their questions were answered. The patient was given a block by anesthesia. They were then brought back to the operating room. They were transferred onto the operating room table where a general anesthetic, preoperative antibiotics, and tranexamic acid were administered by anesthesia. A tourniquet was applied to the proximal aspect of the operative extremity. The contralateral extremity was padded under the heel and secured to the operating room table with a nonsterile blue towel and tape. The ipsilateral arm was carefully draped across the patient's chest and secured with a pillow and foam. A post was applied over the lateral aspect of the ipsilateral thigh and a bolster was placed under the ipsilateral foot. I verified that the operative extremity was stable and the knee was flexed to 90. The operative extremity was then placed in a leg roth, nonsterile drapes were applied, and the extremity was prepped and draped sterilely in the standard sterile fashion. Prior to starting surgery timeout was performed identifying the correct patient, operative extremity, and procedure. The leg was then elevated, exsanguinated with an Esmarch bandage, and the tourniquet was inflated. An anterior midline incision was made sharply with a scalpel. Once I had dissected deep to the superficial fascial layer medial and lateral flaps were elevated. A medial parapatellar arthrotomy was created. Upon opening the knee joint there were diffuse arthritic changes in all 3 compartments. The anterior horn of the medial meniscus were sharply released and a medial release was performed around the posterior medial corner of the knee to facilitate retractor placement. The fat pad was excised with electrocautery. The patella was found to be severely arthritic and a provisional cut was made with a sagittal saw to facilitate mobilization of the extensor mechanism during the procedure. Remnants of the ACL and PCL were then excised from the notch. 4 mm pins were then placed within the incision in the medial distal femur and proximal tibia. Arrays were applied to the pins and I verified they were completely tightened. The knee was then registered with the Notorious robot and manipulations in implant position were made to balance the knee and opitmize implant position. Using the Mekhi robotic saw all cuts were made in accordance with our plan. After all bony fragments had been removed the cuts were verified with the planar probe. The tibia was then subluxed forward and sized. The knee was brought into flexion and a lamina rn patient care was placed to allow removal of the meniscal remnants both medially and laterally as well as posterior osteophytes. Local anesthetic was then infiltrated around the joint capsule. Trial implants were then placed within the knee. Range of motion and collateral ligament tension was then evaluated. Adjustments in implant size and position were then made accordingly. Once the knee was felt to be appropriately balanced the Mekhi pins were removed. The patella was then recut, sized, and punched. A trial patellar button was then placed. With the trial components in place, the patella tracked midline. The femur was then drilled and the trial component removed. The trial tibial component was then appropriately rotated, pinned, and prepared for the keel. All trial components were then removed from the knee. The knee was thoroughly irrigated with pulsatile lavage. Cement was prepared via vacuum mixing in a bowl on the back table. I then hand pressurized cement into the femur and tibia and placed the implants beginning with the tibial base tray and poly liner, femoral component, and finally the patellar button. All extruded cement was removed including from the pin sites. Once the cement had hardened the knee was evaluated one final time with the final polyethylene liner in place. The knee had full extension and flexion and felt stable to varus and valgus stress throughout the arc of motion. The tourniquet was released and with the tourniquet down the patella tracked midline. All bleeders were controlled with electrocautery. The knee was then soaked for 3 minutes with a dilute Betadine soak. The knee was thoroughly irrigated using 3 L of sterile saline and pulsatile lavage. The extensor mechanism was then reapproximated using pop off Vicryl sutures followed by a running barbed suture. The knee was then closed in layers with a 0 strata fix for the deep fascial layer, 2-0 strata fix for the superficial subcutaneous layer and Monocryl and Steri-Strips for the skin. A sterile dressing was applied. I verified that all instrument, sponge, and sharp counts were correct. The patient was then transferred off the operating room table, extubated, and brought to recovery having tolerated the procedure well. Taran Freedman PA-C was required as a skilled assistant film editor due to the complexity of surgery for patient positioning, draping, exposure, retraction, closure of wound and application of dressing. PLAN: The patient can weight-bear as tolerated on the operative extremity. DVT prophylaxis with aspirin 81 mg twice a day based on preoperative risk stratification. The patient is going to attempt to leave as an outpatient. They can be discharged as long as they passed physical therapy and her pain is controlled. Follow-up in the office in 2 weeks for wound check and x-rays of the knee including an AP and lateral.
[2024-08-10 09:33] VITALS: TEMP 97.1
[2024-08-10] MEDS: HYDROmorphone 0.5 MG/0.5 ML SYRINGE IVP PRN (09:41)
--- NOTE | 2024-08-10 10:14 | XR ---
EXAMINATION TYPE: XR knee limited RT DATE OF EXAM: 08/10/2024 10:08 AM COMPARISON: None CLINICAL INDICATION: Male, 58 years old with history of Evaluation for Postop abnormality and alignme nt; PHH, pain TECHNIQUE: XR knee limited RT 2 views submitted. FINDINGS: Status post total knee arthroplasty changes with hardware in appropriate alignment and in tact. No evidence of fracture. Subcutaneous lucencies and lucencies within the joint consistent with surgical changes. IMPRESSION: Status post total knee arthroplasty changes with hardware intact and appropriate alignment. No fractu res identified. [facility], , 08/10/2024 10:12 AM
[2024-08-10] MEDS: SODIUM CHLORIDE 0.9% 1,000 ML IV SCH (10:27)
[2024-08-10 11:10] VITALS: RESP 16
[2024-08-10] MEDS: SCOPOLAMINE 1 MG/72 HR PATCH TRANSDERM STA (11:56)
[2024-08-10] MEDS: droPERidol 2.5 MG/ML VIAL IVP ONE (13:16)
[2024-08-10 13:52] VITALS: PULSE 79
[2024-08-10 14:49] VITALS: BP 124/82
[2024-08-10] MEDS ORDERED: SENNOSIDES-DOCUSATE SODIUM 1 EACH TAB PO SCH (21:00)
[2024-08-10] MEDS ORDERED: ASPIRIN 81 MG PO SCH (21:00)
== END 2024-08-10 15:15 | disposition home health service (06) ==
LOC: OR 05:35
PROVIDERS: ATTEND Orthopaedic Surgery
DX: M17.11 Unilateral primary osteoarthritis, right knee (principal); J45.909 Unspecified asthma, uncomplicated; K21.9 Gastro-esophageal reflux disease without esophagitis; K90.0 Celiac disease; I10 Essential (primary) hypertension; Z96.651 Presence of right artificial knee joint; Z01.818 Encounter for other preprocedural examination; Z79.899 Other long term (current) drug therapy
CPT/HCPCS: 27447; 97161; 64447; 64473; 73560; C1776; C1713; J2250; J0330; J1100 ×2; J2710; J0690; J2405; J2003; J3010; J3490; J2795; J1885; J2704; J1171; J2371; J1596; J1790; 64999